=== PATIENT | female | born 1970 | race Caucasian/White ===

== ENCOUNTER → 2023-03-19 11:15 | Outpatient (BNV) | payer BC, SELFPAY | PROVIDERS: Visit Provider Psychiatry & Neurology Psychiatry | DX: F41.1 Generalized anxiety disorder (principal); F51.05 Insomnia due to other mental disorder; F34.1 Dysthymic disorder | CPT/HCPCS: 90792; 99213 ==

== ENCOUNTER 2023-03-23 10:15 | Outpatient (RCR) | payer BC, SELFPAY ==
[2023-03-19 11:18] VITALS: BP 126/81; PULSE 78; TEMP 37
[2023-03-19 11:20] VITALS: BMI 19.3
--- NOTE | 2023-03-19 11:55 | PC.ADMIT ---
Patient is a 52 year old female who was referred to [facility] by her provider d/t severe anxiety and insomnia which is causing depression sxs. Patient reports struggling with insomnia since February 2023. She reports she does not want to be on prescription Benzodiazapines anymore. Reports she has been on them for 20 years. Feels this is contributing to her anxiety/sleep issues. She is prescribed both Clonazepam and Lorazepam. Stated she does not know why her prescriber added Lorazepam. Stated last use of Lorazapam prn was a few weeks ago. Wants to titrate off Clonazepam. Patient reports she has a sleep study scheduled 03/30/23. Patient also stated she slept well last night for the first time getting 8 hours of sleep after taking the full dose of Trazodone last night. Patient is alert and oriented x4. calm and cooperative. Presented with depressed mood and anxious affect. Denied SI. I gave Loretta a copy of her safety plan if needed and I reviewed this with her. Medications reconciled with patient and patient's pharmacy. She reports taking medications as prescribed.
--- NOTE | 2023-03-19 14:54 | HO.PHP ---
The clients case was reviewed and opened in treatment team.
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
--- NOTE | 2023-03-20 22:12 | P.PNPSP_ITS ---
Subjective Subjective Date of Service: 03/20/23 Reason For Visit: depression,anxiety,PTSD Interim History: Patient seen for follow-up today due to ongoing sleep issues. Trazodone was tolerated, had taken an initial 25 mg in the evening (6pm) and 50 mg at bedtime (9pm), plus an additional 50 mg after midnight. She eventually slept a couple of hours but does feel tired this morning. She feels thready today from tiredness. Will plan to take 100 mg trazodone at HS, and then can take an additional 25-50 mg by 11pm if not sufficiently tired. Will continue clonazepam at current dose for the week. She is still interested in coming off of gabapentin, however she may consider continuing on the gabapentin especially if AE start to emerge as we raised the trazodone dose for sleep. Again I approach discussion of considering 1st line treatment for targeting the anxiety, which would likely also translate into improvements in insomnia given chronic pervasive generalized is likely cause or at least one of the primary contributors to her chronic sleep issues. Continue with plan for extended taper off BZD to mitigate potentiating withdrawal sx, by decreasing the dose fractionally (~25% q 2wks). Complaints in keeping with SIMEON, denies any significant depressive symptoms, aside from mild dy sthymia, denies any helplessness, hopelessness or SI. No evidence of psychosis. Medication Compliance: Yes Side effects from medications: No Review of Systems Acute medical concerns: No Mental Status Exam Mental Status Exam Narrative: Alert, oriented, in no acute distress. Patient Appearance: Well Grooomed Patient Behavior: Appropriate and Cooperative Mood Description: Nervous Affect Description: Calm and Anxious Ability to Follow Directions: Excellent Speech Pattern: Clear, Spontaneous Speech and Coherent Memory Description: Intact Hallucinations: None Delusions: Not Present Thought Process: Intact Thought Content: positive for Intact Judgment: Good Diagnostics Vital Signs (24Hr): BMI result Body Mass Index 19.3 Assessment & Plan Assessment & Plan (1) SIMEON (generalized anxiety disorder): Status: Acute Code(s): F41.1 - Generalized anxiety disorder (2) Insomnia disorder, with non-sleep disorder mental comorbidity, persistent: Status: Acute Code(s): F51.05 - Insomnia due to other mental disorder (3) Depressive disorder: Status: Acute Code(s): F32.A - Depression, unspecified Plan Start Buspar 5 mg BID, will increase to 10 mg BID by Thursday per patient request we are tapering her off of benzodiazepine and gabapentin bump up trazodone to 100 mg qhs (may take additional 50 mg PRN insomnia) continue with long BZD taper - clonazepam currently at 3/4 tablet (0.5 mg tab) patient tolerating gabapentin decrease, currently at 1200 mg continue other medicaitons Continue in PHP Patient educated on: diagnosis and medication risk/benefits Informed Consent: understands Reason for contiued partial hosp. stay Substantial Risk for: med/psych decompensation Certification I certify that partial hospital treatment is medically necessary due to the symptoms and problems resulting from the patient's mental illness and the failure to treat the patient at the partial hospital level of care would likely result in the patient requiring inpatient psychiatric care which could not be prevented at a less intensive level of care. Total time managing care of this patient today __30__ minutes. Discharge Plan Discharge Attending provider: Jo Ann Pruitt Medications: No Action gabapentin 600 mg tablet 600 - 900 mg PO BEDTIME trazodone 50 mg tablet 50 - 100 mg PO BEDTIME Patient Comments: Patient took a full tab last night for the first time and slept 8 hours. clonazepam 0.5 mg tablet 0.75 - 1 mg PO BEDTIME PRN (Reason: Anxiety) lorazepam 1 mg tablet 1 - 2 mg PO BEDTIME PRN (Reason: Anxiety)
--- NOTE | 2023-03-23 14:22 | HO.PHPPROGNO ---
Subjective Subjective Date of Service: 03/23/23 Reason For Visit: depression,anxiety,PTSD Interim History: Patient able to sleep 2out of 3 nights with 150 mg trazodone (100 mg around 9pm and additional 50 mg before midnight. Notices some dry mouth which is improving, and perhaps some constipation but will wait and see . Thursday experiences some body aches, was concerned if this was a medication side effects, however this has since resolved. Had more difficulty sleeping last night, started overthinking heading into the evening, fells asleep fine at 9pm but woke at midnight unable to fall back asleep until 4am. Head focused on worries or things she needs to do. Feels tired and more physically anxious/nervous throughout the day (heart racing, exhausted, thready) on days after getting poor sleep. She relayed being more open to considering nonSSRI options for anxiety (such as antihypertensive options prazosin, guanfacine, propranolol, which help with somatic anxiety) however is still quite reluctant to start anything new. She is also expressing some concerns about getting off gabapentin, which she initially advocated for. She has conflicted feelings about medication: preoccupied with potential withdrawal from stopping medication (as well as fears about residential dependence for continued use of medications) which again was discussed in detail for each medication. At this point, it may be more practical to stay on gabapentin - especially given limits of trazodone (with emerging side effects, she's unlikely to tolerate doses beyond 150 mg) as well as her reticence of starting a new medication to help with sleep - and just focus on discontinuation from the benzodiazepine, which she is most eager to stop. Denies any considerable mood issues, says she doesn't feel depressed. Denies any h/h/SI. Medication Compliance: Yes Side effects from medications: Yes (as noted above) Attending Groups: Yes Review of Systems Acute medical concerns: No Mental Status Exam Mental Status Exam Narrative: Alert, oriented, in no acute distress. Patient Appearance: Well Grooomed Patient Behavior: Appropriate and Cooperative Mood Description: Nervous Affect Description: Calm and Anxious Ability to Follow Directions: Excellent Speech Pattern: Clear, Spontaneous Speech and Coherent Memory Description: Intact Hallucinations: None Delusions: Not Present Thought Process: Intact Thought Content: positive for Intact Judgment: Good Diagnostics Vital Signs (24Hr): BMI result Body Mass Index 19.3 Assessment & Plan Assessment & Plan (1) SIMEON (generalized anxiety disorder): Status: Acute Code(s): F41.1 - Generalized anxiety disorder (2) Insomnia disorder, with non-sleep disorder mental comorbidity, persistent: Status: Acute Code(s): F51.05 - Insomnia due to other mental disorder (3) Persistent depressive disorder: Status: Acute Code(s): F34.1 - Dysthymic disorder Plan Continue trazodone 100-150 mg qhs PRN Will continue gabapentin 1200 mg qhs Will reinstate gabapentin 300 mg qd at 5pm to help with anxiety heading into the evening Patient declines starting antidepressant as 1st line treatment for SIMEON, nor any other new medication at this time Continue with long taper off clonazepam Patient educated on: diagnosis and medication risk/benefits Informed Consent: understands Reason for contiued partial hosp. stay Substantial Risk for: med/psych decompensation Certification I certify that partial hospital treatment is medically necessary due to the symptoms and problems resulting from the patient's mental illness and the failure to treat the patient at the partial hospital level of care would likely result in the patient requiring inpatient psychiatric care which could not be prevented at a less intensive level of care. Total time managing care of this patient today __30__ minutes. Discharge Plan Discharge Attending provider: Jo Ann Pruitt Medications: No Action gabapentin 600 mg tablet 600 - 900 mg PO BEDTIME trazodone 50 mg tablet 50 - 100 mg PO BEDTIME Patient Comments: Patient took a full tab last night for the first time and slept 8 hours. clonazepam 0.5 mg tablet 0.75 - 1 mg PO BEDTIME PRN (Reason: Anxiety) lorazepam 1 mg tablet 1 - 2 mg PO BEDTIME PRN (Reason: Anxiety)
--- NOTE | 2023-03-24 10:04 | HO.PHP ---
PHP staff contacted Loretta due to her stating to the admin that she is uncertain to if this program is the right fit for her. PHP staff member explored further what is occurring. Loretta disclosed that she is feeling compassion fatigue and feels as though it is emotionally draining. Loretta voiced that her anxiety has been increasing due to bringing home conversations that were talked about. PHP staff acknowledged her feelings and disclosed she will follow up with the med provider since she is aware that Loretta was working on adjusting medication to see if she is at a stable point with medication changes to discharge. Loretta was receptive and voiced if she could continue with just the med provider, she would but knows that is not a possibility.
== END 2023-03-26 11:04 | disposition home or self-care (01) ==
LOC: HO.PHPA 10:15
PROVIDERS: Visit Provider Psychiatry & Neurology Psychiatry
DX: F41.1 Generalized anxiety disorder (principal); F51.05 Insomnia due to other mental disorder; F34.1 Dysthymic disorder; Z79.899 Other long term (current) drug therapy
CPT/HCPCS: 90791; 90853

== ENCOUNTER 2023-05-26 14:05 | Emergency (ER) | payer BC, SELFPAY ==
[2023-05-26 14:08] VITALS: BP 119/78; PULSE 89; RESP 15; TEMP 36.7; O2SAT 99
--- NOTE | 2023-05-26 14:09 | ED.GENADULT ---
HPI - General Adult General Chief complaint: General Medical Stated complaint: Anxiety Time Seen by Provider: 05/26/23 23:44 Source: patient Mode of arrival: ambulatory Limitations: no limitations History of Present Illness HPI narrative: Emergency room complaining of anxiety, panic attacks. Patient states that she is weaning herself down gradually from Klonopin. Patient states that from the last dose that she weaned herself down, she has had increased lack of sleep, fear, anxiety, palpitations and panic attacks. Patient denies suicidal ideation or homicidal ideation. Patient requesting to be seen by the care team for additional resources. Patient states that she has a therapist and psychiatrist. However, patient feels that she does not have enough support or guidance to wean herself off of Klonopin. Patient states that she does not want to be dependent on benzodiazepines. Related Data Home Medications Medication Instructions Recorded Confirmed clonazepam 0.5 mg tablet 0.75 - 1 mg PO BEDTIME PRN Anxiety 03/19/23 03/19/23 gabapentin 600 mg tablet 600 - 900 mg PO BEDTIME insomnia 03/19/23 03/19/23 lorazepam 1 mg tablet 1 - 2 mg PO BEDTIME PRN Anxiety 03/19/23 03/19/23 trazodone 50 mg tablet 50 - 100 mg PO BEDTIME 03/19/23 03/19/23 Allergies Allergy/AdvReac Type Severity Reaction Status Date / Time gluten AdvReac Gastrointestinal Verified 03/19/23 11:21 Upset Review of Systems Review of Systems: Constitutional : No Weight loss, No Fever, No Chills, No Night Sweats, No Fatigue, No Malaise ENT/Mouth : No Hearing loss, No Ear Pain, No Nasal Congestion, No Sinus Pain, No Hoarseness, No sore throat, No Rhinorrhea, No Swallowing Difficulty Eyes: No Eye Pain, No Swelling, No Redness, No Foreign Body, No Discharge, No Vision Changes Cardiovascular : No Chest Pain, No SOB, No Dyspnea on Exertion, No Orthopnea, No Edema, No Palpitations Respiratory : No Cough, No Sputum, No Wheezing, No Smoke Exposure, No Dyspnea Gastrointestinal : No Nausea, No Vomiting, No Diarrhea, No Constipation, No abdominal Pain, No Hematochezia, No Melena Genitourinary : no irregular bleeding, No Dysuria, No Urinary Frequency, No Hematuria, No Urinary Incontinence, No Urgency, No Flank Pain, No Urinary Flow Changes, No Hesitancy Musculoskeletal : No joint pain, No Myalgias, No Joint Swelling Skin : No Skin Lesions, No rash Neuro : No Weakness, No Numbness, No Paresthesias, No Loss of Consciousness, No Dizziness, No Headache Psych : Complaining of anxiety and panic attacks, No Depression, No SI/HI/AH/VH, No Social Issues, Heme/Lymph: No Bruising, No Bleeding,No Lymphadenopathy Endocrine : No Polyuria, No Polydipsia, No Temperature Intolerance PMFSH Past Medical History Onset Date is defined in the Problem List Problems that require an onset date and time if occurred within 24 hrs of arrival to the ED Aortic Dissection and Rupture; Neurologic impairment; Cardiopulmonary Arrest; Endotracheal Intubation; Insertion or Replacement of Mechanical Circulatory Assist Device Medical History Persistent depressive disorder SIMEON (generalized anxiety disorder) delivery delivered IBS (irritable bowel syndrome) Social History Social History (System 02/19/23 @ 15:27 by Miguelina Fortune) Household Members: Spouse Patient Tobacco Use Status: Never used Tobacco Advance Directives: No Advance Directives Information Provided: Yes Physical Exam ED Vital Signs: Vital Signs - 24 hr 05/26/23 14:08 05/26/23 16:53 05/26/23 23:45 Temperature 98.1 F 98.0 F 98.1 F Pulse Rate 89 88 79 Respiratory Rate 15 16 17 Blood Pressure 119/78 108/66 127/79 Pulse Oximetry 99 98 99 Oxygen Delivery Method Room Air Room Air Room Air BMI result Body Mass Index 20.0 Const Other: Appearance: Alert. Oriented X3. No acute distress. Eyes: Pupils equal, round and reactive to light. ENT: Pharynx normal. Neck: Normal inspection. Neck supple. No lymph nodes noted. No crepitus CVS: Normal heart rate and rhythm. Pulses normal. Normal S1 and S2 Respiratory: No respiratory distress. Breath sounds normal. No Wheezing. No rales Abdomen: Soft and nontender. No rigidity. No distention. Skin: Skin warm and dry. Normal skin color. Normal skin turgor. Extremities: No lower extremity edema. No Lacerations. No Rash Neuro: Oriented X 3. No motor deficit. No sensory deficit. Moving all extremities. No slurred speech. CN 2 through 12 grossly intact Psych: calm, cooperative, normal affect Course Course Course Narrative: This is a rapid medical exam: Additional HPI, ROS, PE not included below will be deferred to primary provider. Patient is a 52-year-old female with history of depressive disorder, SIMEON, insomnia presenting to the emergency department with complaint of increasing anxiety since being weaned off of clonazepam, states she is currently at 0.375mg. Was previously on 0.75mg. States this medication is prescribed by her psychiatrist but that her psychiatrist is not very helpful. Has been having fear, anxiety, is not sleeping, palpitations, fatigue. Has not had a good night's sleep in 5 nights. Denies suicidal or homicidal ideation, auditory or visual hallucinations. Plan: med clearance, CARE team eval Medical Decision Making Medical Decision Making MDM Narrative: My interpretation of labs: Hematology within normal limits, chemistry unremarkable, hCG negative, toxicology negative. -care team consult pending -I was informed by the patient's nurse that the patient eloped Differential Diagnosis Differential Diagnoses: The differential diagnosis associated with the presentation includes (Anxiety, panic attacks) Lab Data 05/26/23 14:25 05/26/23 14:25 Labs: Lab Results 05/26/23 Range/Units 14:25 WBC 8.2 (4.8-10.8) X10*3/uL RBC 4.90 (4.20-5.50) X10*6/uL Hgb 14.6 (12.0-16.0) g/dl Hct 43.4 (37.0-47.0) % MCV 88.6 (80.0-98.0) fL MCH 29.8 (27.0-33.0) pg MCHC 33.6 (31.0-35.0) g/dl RDW 12.4 (11.0-16.0) % Plt Count 326 (160-400) X10*3/uL MPV 9.2 L (9.4-12.3) fL Immature Gran % (Auto) 0.5 H (0.0-0.4) % Neut % (Auto) 62.9 (45-73) % Lymph % (Auto) 26.2 (20-40) % [place] % (Auto) 9.0 (2-11) % Eos % (Auto) 0.9 (0-4) % Baso % (Auto) 0.5 (0-2) % Lymph # (Auto) 2.2 (1.2-4.9) X10*3/uL [place] # (Auto) 0.7 (0.1-1.2) X10*3/uL Eos # (Auto) 0.1 (0.0-0.4) X10*3/uL Baso # (Auto) 0.0 (0.0-0.2) X10*3/uL Abs Immat Gran (auto) 0.04 H (0.00-0.03) X10*3/uL Absolute Neuts (auto) 5.2 (2.0-8.3) x10*3/uL Absolute Nucleated RBC 0.000 (0.0-0.012) X10*3/uL Nucleated RBC % (auto) 0.0 (0.0-0.2) /100WBC Sodium 140 (135-145) mmol/L Potassium 3.7 (3.3-5.1) mmol/L Chloride 100 (96-108) mmol/L Carbon Dioxide 33 H (22-29) mmol/L Anion Gap 11 L (12-20) BUN 14 (9-16) mg/dL Creatinine 0.80 (0.5-1.4) mg/dL Estim Creat Clear Calc 66.3 Estimated GFR > 60 Random Glucose 94 (60-115) mg/dL Calcium 9.3 (8.4-10.2) mg/dL Beta HCG, Quant < 2 mIU/mL Urine Color Yellow Urine Appearance Clear Urine pH 7.5 (5.0-9.0) Ur Specific [place] <= 1.005 (1.005-1.025) Urine Protein Negative (Neg-Trace) mg/dL Urine Glucose (UA) Negative (Negative) mg/dL Urine Ketones Negative (Negative) mg/dL Urine Blood Trace H (Negative) Urine Nitrite Negative (Negative) Ur Leukocyte Esterase Negative (Negative) Urine RBC 0-2 (0-2) /HPF Urine WBC 0-5 (0-5) /HPF Ur Squamous Epith Cells 0-2 (0-2) /HPF Urine Bacteria None Seen (None Seen) Hyaline Casts 0-2 (0-2) /LPF Urine Opiates Screen Not Detected (Not Detect) Urine Fentanyl Screen Not Detected (Not Detect) Ur Barbiturates Screen Not Detected (Not Detect) Ur Phencyclidine Scrn Not Detected (Not Detect) Ur Amphetamines Screen Not Detected (Not Detect) U Benzodiazepines Scrn Not Detected (Not Detect) Urine Cocaine Screen Not Detected (Not Detect) U Marijuana (THC) Screen Not Detected (Not Detect) Ethyl Alcohol < 10 mg/dL COVID-19 (LOIS) Negative (Negative) COVID-19 Clin Com See Note Discharge Plan Discharge Clinical Impression: SIMEON (generalized anxiety disorder) Patient Disposition: Elopement Prescriptions: No Action gabapentin 600 mg tablet 600 - 900 mg PO BEDTIME trazodone 50 mg tablet 50 - 100 mg PO BEDTIME Patient Comments: Patient took a full tab last night for the first time and slept 8 hours. clonazepam 0.5 mg tablet 0.75 - 1 mg PO BEDTIME PRN (Reason: Anxiety) lorazepam 1 mg tablet 1 - 2 mg PO BEDTIME PRN (Reason: Anxiety)
--- NOTE | 2023-05-26 14:13 | ECG_ITS ---
Test Reason : PALPITATIONS Blood Pressure : / mmHG Vent. Rate : 084 BPM Atrial Rate : 084 BPM P-R Int : 130 ms QRS Dur : 076 ms QT Int : 368 ms P-R-T Axes : 048 054 022 degrees QTc Int : 434 ms Normal sinus rhythm Nonspecific ST abnormality Abnormal ECG When compared to the previous EKG of 15 feb 2017, NSTT more prominent Referred By: Melissa Richards Electronically Signed By:INGE NELSON
[2023-05-26 14:31] LABS: MANUAL DIFF FLAG NO
[2023-05-26 14:33] LABS: Appearance Urine Clear; Basophils Percent Auto 0.5 % (0-2); Color Urine Yellow; Eosinophils Absolute Auto 0.1 X10*3/uL (0.0-0.4); Eosinophils Percent Auto 0.9 % (0-4); Glucose Urine UA Negative (Negative); Hematocrit 43.4 % (37.0-47.0); Hemoglobin 14.6 g/dl (12.0-16.0); Imm Gran Abs Auto 0.04 X10*3/uL (0.00-0.03); Imm Gran Pct Auto 0.5 % (0.0-0.4); Leukocyte Esterase Urine Negative (Negative); Lymphocytes Absolute Auto 2.2 X10*3/uL (1.2-4.9); Lymphocytes Percent Auto 26.2 % (20-40); Mean Corpuscular HGB Conc 33.6 g/dl (31.0-35.0); Mean Corpuscular Hemoglobin 29.8 pg (27.0-33.0); Mean Corpuscular Volume 88.6 fL (80.0-98.0); Mean Platelet Volume 9.2 fL (9.4-12.3); Monocytes Absolute Auto 0.7 X10*3/uL (0.1-1.2); Neutrophils Absolute Auto 5.2 x10*3/uL (2.0-8.3); Neutrophils Percent Auto 62.9 % (45-73); Nitrite Urine Negative (Negative); PH 7.5 (5.0-9.0); Platelet Count 326 X10*3/uL (160-400); Red Cell Distribution Width 12.4 % (11.0-16.0); Specific Gravity - Urine <= 1.005 (1.005-1.025); UMIC TRIGGER UACC YES; Urine Blood Trace (Negative); Urine Ketones Negative (Negative); Urine Protein Negative (Neg-Trace); White Blood Count 8.2 X10*3/uL (4.8-10.8)
[2023-05-26 14:40] LABS: Amphetamine Screen Urine Not Detected (Not Detect); Barbiturates, Urine Not Detected (Not Detect); Benzodiazepines Screen Urine Not Detected (Not Detect); Cannabinoid Screen Urine Not Detected (Not Detect); Cocaine Screen Urine Not Detected (Not Detect); Fentanyl, urine Not Detected (Not Detect); Opiate Screen Urine Not Detected (Not Detect); Phencyclidine Screen Urine Not Detected (Not Detect)
[2023-05-26 14:45] LABS: COVID-19 Test Negative (Negative); IDNOW Serial# 08D9AD1C
[2023-05-26 14:55] LABS: Bacteria Urine None Seen (None Seen); Hyaline Casts Urine 0-2 /LPF (0-2); RBC Urine 0-2 /HPF (0-2); Squamous Epithelial Cell Urine 0-2 /HPF (0-2); WBC Urine 0-5 /HPF (0-5)
[2023-05-26 14:56] LABS: Anion Gap 11 (12-20); Blood Urea Nitrogen 14 mg/dL (9-16); Calcium 9.3 mg/dL (8.4-10.2); Carbon Dioxide 33 mmol/L (22-29); Chloride 100 mmol/L (96-108); Creatinine Clr Calc Pharmacy 66.3; Estimated Glomerular Filt Rate > 60; Ethanol < 10 mg/dL; Glucose Random 94 mg/dL (60-115); HCG Quantitative < 2 mIU/mL; Potassium 3.7 mmol/L (3.3-5.1); Sodium 140 mmol/L (135-145)
[2023-05-26 16:53] VITALS: BP 108/66; PULSE 88; RESP 16; TEMP 36.7; O2SAT 98
[2023-05-26 23:45] VITALS: BP 127/79; PULSE 79; RESP 17; TEMP 36.7; O2SAT 99
--- NOTE | 2023-05-27 00:47 | PC.NURSE ---
Took over for MITZI Gates, attempt to assess and discharge pt. pt left with out discharge, Notified Dr. Keyes
== END 2023-05-27 00:48 | disposition left against medical advice (07) ==
PROVIDERS: Registered Nurse Emergency; Emergency Provider Emergency Medicine; PCP Nurse Practitioner Family
DX: F41.1 Generalized anxiety disorder (principal); Z79.899 Other long term (current) drug therapy; Z12.11 Encounter for screening for malignant neoplasm of colon
CPT/HCPCS: 80048; 80307; 81001; 84702; 85025; 87635; 93005; 99283; 99284

== ENCOUNTER → 2023-05-26 14:13 | Outpatient (BNV) | payer BC, SELFPAY | PROVIDERS: Emergency Provider Emergency Medicine; PCP Nurse Practitioner Family; Visit Provider Internal Medicine | DX: R00.2 Palpitations (principal) | CPT/HCPCS: 93010 ==

== ENCOUNTER 2025-02-03 09:15 | Outpatient (AMB) | payer BC, SELFPAY ==
--- OUTSIDE RECORDS SUMMARY | 2023-12-09 08:00 | XMS_ITS ---
Author Organization [address] [id number] Care Team Providers Care Electronics Detail Draftsperson Name Role Phone Naomi Grady Unavailable [phone] REASON FOR VISIT establish Encounters Encounter Location Date Provider Diagnosis [address] [id number] 12/09/2023 Naomi Grady Plan Of Treatment No Information Progress Notes * Loretta BENNETTDOB:[birth year] (54 yo F)Acc No.[id number]:12/09/2023 Progress Notes Patient: Loretta INMAN Provider: Eric Grady ND :1970 A ge:53 Y S ex:Female Date:12/09/2023 Address:[address] [id number] Subjective: * Chief Complaints: * 1 . Establish. * Medical History: Objective: * Vitals: Assessment: Plan: * Treatment: * * Electronic signature of Laisha Grady ND on 02/03/2025 at 10:02 AM EDT Sign off status: Pending * Provider: Eric Grady ND Date: 12/09/2023 Generated for Janice garcia/Nereida/eTrogersmitting on: 02/03/2025 10:02 AM EDT
--- OUTSIDE RECORDS SUMMARY | 2024-04-22 07:00 | XMS_ITS ---
Author Organization [facility] Address [address] [place] [id number] Care Team Providers Care Continuity Clerk Name Role Phone Naomi Grady Unavailable [phone] Sha Lopez Unavailable [phone] REASON FOR VISIT ROF Encounters Encounter Location Date Provider Diagnosis [address] [id number] 04/22/2024 Sha Lopez Plan Of Treatment No Information Progress Notes * Loretta BENNETTDOB:[birth year] (54 yo F)Acc No.[id number]:04/22/2024 Progress Notes Patient: Loretta INMAN Provider: Ericka Lopez ND :1970 A ge:53 Y S ex:Female Date:04/22/2024 Address:[address] [id number] Subjective: * Chief Complaints: * 1 . ROF. * Medical History: Objective: * Vitals: Assessment: Plan: * Treatment: * * Electronic signature of Hesham Lopez ND on 02/03/2025 at 10:01 AM EDT Sign off status: Pending * Provider: Ericka Lopez ND Date: 06/23/2023 Generated for Janice garcia/Nereida/Cateitting on: 02/03/2025 10:01 AM EDT
[2025-02-03 09:22] VITALS: BP 116/64; PULSE 72; O2SAT 99; BMI 19.9
--- NOTE | 2025-02-03 09:22 | MHC.OFFVIS ---
Vital Signs 02/03/25 09:22 Height 5 ft 3 in Weight 112 lb 4 oz BMI 19.9 BP 116/64 Blood Pressure Location Rt brachial Position Sitting Pulse 72 Pulse Source Pulse Oximeter Pulse Oximetry (%) 99 Oxygen Delivery Method Room Air Intake Visit Reasons: ENP-Insomnia Intake Note: Patient presents REAL ESTATE INTERN Insomnia. supervisor cd area awakening pattern at 3-4am with inability to return to sleep. Light snoring. Past few nights hard time falling sleep. Patient states migraines go away on own through out the day. Goes to bed 8pm wake up at 5am. No history of sleep study. Accompanied by: Self / Same As Patient Allergies gluten Adverse Reaction (Verified 02/03/25 09:27) Gastrointestinal Upset HPI Comments Details: 54 year old female presents for an evaluation of sleep difficulties, she is referred to us by her REAL ESTATE INTERN at [facility] in [place]. During the Fall season, as December pt's sleep gets interrupted she goes to bed at 8pm and wakes up 2 hours after taking her medication. She is taking trazadoone 175mg Gabapentin 300mg qam and 900-1200mg qpm with clonazepam 0.5mg po prn for anxiety, and Seroquel 25mg prn for mood irritability. She is also on bioidentical hormones, Progesterone 75mg po and Estrogen cream. She has vasomotor symptoms, sweating, cold intolerance, anxiety, and lack of motivation. She can stay in bed all day due to fatigue. She wears a ice guard tester due to bruxism and has daily headaches in the morning. She takes advil otc and they go away with in 2 hours or less. She is seeing her therapist once a week, uses mindful meditation practices and a light box for seasonal depression. Memory is stable. She has IBS gets constipation and diarrhea, takes magnesium citrate 500mg qam. Her diet is clean. [facility] Medical History Persistent depressive disorder SIMEON (generalized anxiety disorder) delivery delivered IBS (irritable bowel syndrome) Social History Household Members: Spouse Patient Tobacco Use Status: Never used Tobacco Physical Exam Vital Signs: Last Vital Signs Pulse 72 02/03/25 09:22 BP 116/64 02/03/25 09:22 Pulse Ox 99 02/03/25 09:22 Oxygen Delivery Method Room Air 02/03/25 09:22 BMI result Body Mass Index 19.9 Const General: cooperative, comfortable and no acute distress Nutritional Appearance: average body habitus Orientation/consciousness: patient oriented x3 HEENT Face and sinus: Yes face symmetric Teeth and gingiva: other ([place] score 3) Eyes Pupils: Equal, round and reactive pupils present Neck Neck: Yes full ROM Resp Effort & Inspection: normal respiratory effort and able to speak in complete sentences Neuro General: patient oriented x3 and moves all extremities Cranial nerves: Yes Facial sensation intact/muscles of mastication intact, Yes Equal, round and reactive pupils present, Yes Normal accommodation reflex present, Yes Normal facial strength present, Yes Midline tongue present, Yes Ability to bilaterally rotate head present and Yes Ability to bilaterally elevate shoulders present Cognition (Neuro): normal cognition Gait exam (Neuro): Normal gait present Motor exam (neuro): 5/5 motor strength present throughout and Normal motor muscle tone present throughout Psych Appearance: grossly normal Thought process: Normal thought process present Thought content: Normal thought content present Results Reviewed Results Reviewed: Labs reviewed on phone with pt. CBC/ CMP Assessment & Plan Assessment & Plan (1) Excessive daytime sleepiness: Code(s): G47.19 - Other hypersomnia Category: Medical (2) Insomnia disorder, with non-sleep disorder mental comorbidity, persistent: Code(s): F51.05 - Insomnia due to other mental disorder Category: Medical (3) Anemia: Code(s): D64.9 - Anemia, unspecified Category: Medical Qualifiers: Anemia type: iron deficiency Iron deficiency anemia type: other iron deficiency Qualified Code(s): D50.8 - Other iron deficiency anemias (4) Seasonal depression: Code(s): F33.8 - Other recurrent depressive disorders Category: Medical Plan Insomnia and difficulty with sleep HST r/o ana maría Labs to r/o deficiencies. Mood irritable due to seasonal depression, continue seeing therapist and seeking meaning social engagment in [place] of friends. Journaling, finding pleasure and merritt in activities you enjoy. Pt. 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 Recommended CBTi marin and [email or web address] Will f/u in 3 months Orders: Orders Vitamin D 25-OH Total Today D64.9 - Anemia, unspecified Vitamin B6 Today D64.9 - Anemia, unspecified Vitamin B1 Today D64.9 - Anemia, unspecified RT home sleep study Today G47.19 - Other hypersomnia Ferritin Today D64.9 - Anemia, unspecified Homocysteine Today D64.9 - Anemia, unspecified, G47.9 - Sleep disorder, unspecified, R53.83 - Other fatigue Methylmalonic Acid Today D64.9 - Anemia, unspecified, G47.9 - Sleep disorder, unspecified, R53.83 - Other fatigue Vitamin B12 and Folate Today D64.9 - Anemia, unspecified TSH reflex Free T4 Today D64.9 - Anemia, unspecified Patient Instructions: Sleep Hygiene provided: set a scheduled bedtime and wake time to help regulate the circadian rhythm and balance the release of pituitary hormones. Sleep in a dark room, temperatures below 68 degrees, and no devices n bed. Limit caffeinated products 6 hours prior to bed, and limit fluids 2-4 hours prior to bed. Gentle night yoga, diffusing essential oils, and playing soft music can be relaxing. Coding Level of Care Code New Pt Level 4 (04143) Diagnoses Excessive daytime sleepiness G47.19 Insomnia disorder, with non-sleep disorder mental comorbidity, persistent F51.05 Other iron deficiency anemia D50.8 Anemia type: iron deficiency Iron deficiency anemia type: other iron deficiency Seasonal depression F33.8 Sleep Questionnaire Difficulty falling asleep: Yes Difficulty staying asleep?: Yes Number of arousals: 6-7 Snoring: No Witnessed apneas: No Gasping arousals: No Nocturia: Yes (3x) GERD: No Vivid dreams: No Acting out dreams: No Abnormal behavior in sleep: No Abnormal movements in sleep: No Morning headaches: Yes Excessive daytime sleepiness: Yes Daytime naps: Yes (lays down but can't fall asleep, for all day.) Restless legs: No Hallucinations: No Sleep paralysis: No Drop attacks: No Sleep Study: No CPAP: No
--- OUTSIDE RECORDS SUMMARY | 2025-02-03 10:01 | XMS_ITS | Encounter Summary ---
Author Organization [facility] Address [address] [place] [address] [place], [place] [id number] Phone Care Team Providers Care Euclid Operator Name Role Phone Kayley Hawkins QUICK SERVICE TECHNICIAN Unavailable [phone] Dhara Greenwood CNM Unavailable [phone] Baldo Sloan MD Unavailable Nelida Rogers QUICK SERVICE TECHNICIAN Unavailable [phone] Augusta Odom QUICK SERVICE TECHNICIAN Unavailable [phone] Primo Nieves MD, MPH Primary Care Provider + Augusta Odom QUICK SERVICE TECHNICIAN Primary Care Provider [phone] Encounter Details Date Type Department Care Team (Latest Contact Info) Description 04/19/2021 Transcribe Orders Virtual Department [address] [place], [place] [phone] Peggy Gomez, DO [address] [place] [address] [email or web address] Unspecified lump in the right breast, unspecified quadrant (Primary Dx) Social History Tobacco Use Types Packs/Day Years Used Date Smoking Tobacco: Never Assessed Comments No Sex and Gender Information Value Date Recorded Sex Assigned at Female 05/25/2020 11:15 AM EST Legal Sex Female 9:34 PM EDT Gender Identity Female 05/25/2020 11:15 AM EST Sexual Orientation Straight 09/25/2021 9: 06 PM EDT documented as of this encounter Plan of Treatment Not on file documented as of this encounter Visit Diagnoses Diagnosis Unspecified lump in the right breast, unspecified quadrant- Primary documented in this encounter Care Teams Euclid Operator Relationship Specialty Start Date End Date Primo Nieves MD, MPH [address] [place] [address] PCP - General Family Medicine 04/19/21 09/12/23 Augusta Odom QUICK SERVICE TECHNICIAN [address] [place] [phone] PCP - General Nurse Practitioner 09/13/23 Kayley Hawkins NP [address] [place] [phone] Historical LMR Provider 02/28/17 Dhara Greenwood CNM [address] [place] [phone] Historical LMR Provider 02/28/17 2 Baldo Sloan MD [address] [place] [id number] [email or web address] Historical LMR Provider 02/28/17 05/18/21 Nelida Rogers NP [address] [place] [phone] [email or web address] Historical LMR Provider 02/28/17 05/18/21 Augusta Odom NP [address] [place] [phone] Historical LMR Provider 02/28/17 documented as of this encounter Additional Source Comments The information contained in this document represents components of the legal health record. It is not the complete legal health record.[facility]
--- OUTSIDE RECORDS SUMMARY | 2025-02-03 10:01 | XMS_ITS | Encounter Summary ---
Author Organization [facility] Address [address] [facility] [address] [place] [phone] Phone Care Team Providers Care Respiratory Care Technician Name Role Phone Kayley Hawkins CURTAIN FRAMER Unavailable [phone] Augusta Odom CURTAIN FRAMER Primary Care Provider [phone] Encounter Details Date Type Department Care Team (Late st Contact Info) Description 06/23/2024 Procedure Pass [facility] - [address] [place] [address] Social History Tobacco Use Types Packs/Day Years Used Date Smoking Tobacco: Never Smokeless Tobacco: Never Alcohol Use Standard Drinks/Week Comments Not Currently 0 (1 standard drink = 0.6 oz pur e alcohol) Education Answer Date Recorded Are you interested in more education? Not on mingo e 09/05/2022 Are you concerned about learning? Not on file 09/05/2022 No 09/05/2022 No 09/05/2022 Digital Access Answer Date Recorded No 09/30/2022 No 09/30/2022 Reliable internet access at home? Not on file 09/30/2022 Device with a working camera? Not on file Intimate Partner Violence Answer Date R ecorded Are you denied basic needs s uch as food, clothing, or medical care? No 09/13/2023 In the past 12 months have y ou been in a relationship with a person who hurts, threatens, or tries to control you? No 09/13/2023 Are you denied basic needs s uch as food, clothing, or medical care? No 09/13/2023 In the past 12 months have y ou been in a relationship with a person who hurts, threatens, or tries to control you? No 09/13/2023 Comments No Sex and Gender Information Value Date Recorded Sex Assigned at Female 05/25/2020 11:15 AM EST Legal Sex Female 9:34 PM EDT Gender Identity Female 05/25/2020 11:15 AM EST Sexual Orientation Straight 09/25/2021 9: 06 PM EDT documented as of this encounter Plan of Treatment Not on file documented as of this encounter Visit Diagnoses Not on filedocumented in this encounter Care Teams Respiratory Care Technician Relationship Specialty Start Date End Date Augusta Odom NP [address] [place] [address] PCP - General Nurse Practitioner 09/13/23 Kayley Hawkins NP [address] [place] [phone] Historical LMR Provider 02/28/17 documented as of this encounter Additional Source Comments The information contained in this document represents components of the legal health record. It is not the complete legal health record.[facility]
--- OUTSIDE RECORDS SUMMARY | 2025-02-03 10:01 | XMS_ITS | Clinical Summary ---
Author Organization [facility] Address [address] [address] Phone Care Team Providers Care Slusher Operator Name Role Phone Kayley Hawkins WILDLIFE REHABILITATOR Unavailable [phone] Augusta Odom WILDLIFE REHABILITATOR Primary Care Provider [phone] Allergies No known active allergies Medications CLONAZEPAM (KLONOPIN ORAL) 1 tablet Orally prn Active gabapentin (NEURONTIN) 300 MG capsule Take 800 mg by mouth. 2 Active cyanocobalamin , vitamin B-12, (VITAMIN B-12 ORAL) Take by mouth. Acti ve cholecalcifero l, vitamin D3, (VITAMIN D3 ORAL) Take by mouth. Activ e ferrous gluconate 324 mg (38 mg elemental) tablet Take 1 tablet by mouth 2 (two) times a day. 3 Active traZODone (DESYREL) 50 MG tablet TAKE 3 TABLETS (50 MG) BY MOUTH EVERY DAY AT BEDTIME NEEDED 4 Active PROGESTERONE, BULK, MISC 75 mg by Miscellaneous route daily. Bioidentical progesterone 4 Active TIFFANY 0.025 mg/24 hr 1 PATCH(ES) 2 TIMES A WEEK, TRANSDERMAL ROUTE 4 Active senna (SENOKOT) 8.6 mg tablet Take 1 tablet by mouth 2 (two) times a day. Please take twice a day until you have a successful bowel movement and then once daily as maintenance 30 tablet 5 Active Active Problems Problem Noted Date Diagnosed Date Vasomotor symptoms due to menopause 07/18/2022 Assessment & Plan (09/17/2023 3:00 PM EDT): Again discussed management options for hot flashes including E+P HRT, SSRI, or Veozah. Discussed different forms of HRT (estrogen: oral, patch, vaginal ring; progesterone: oral, patch, IUD) and pros/cons to each approach. Reviewed WHI findings including increased risk of TN/heart disease, breast cancer and VTE/stroke on HRT with overall decrease in hot flashes, colorectal cancer, and fractures. Advised that current compounded progesterone is not appropriate as estradiol opposition and should be discontinued. Reviewed dosing instructions and side effects including vaginal bleeding and breast tenderness. Loretta is most interested in trying combination patch given side effects with PO Prometrium previously. Rx sent to pharmacy. Resolved Problems Problem Noted Date Diagnosed Date Resolved Date Hormone replacement therapy 01/06/2019 10/18/2021 Assessment & Plan (03/19/2020 10:42 AM EST): Prescribed by Augusta Odom - discussed alternatives to current progesterone dosing including Climara-Pro patch or cyclic micronized progesterone. Again discussed risks/benefits of HRT. Loretta will consider. Assessment & Plan (01/06/2019 9:03 PM EDT): We discussed general principles of HRT including indications (perimenopausal vasomotor symptoms) with the goal of therapy to include the lowest dose/shortest course possible. We discussed different delivery mechanisms of HRT (estrogen: oral, patch; progesterone: oral, patch, IUD) and pros/cons to each approach. Reviewed WHI findings including increased risk of TN/heart disease, breast cancer and VTE/stroke on HRT with overall decrease in hot flashes, colorectal cancer, and fractures. I recommended that Loretta stop the HRT as she was not having vasomotor symptoms and seems to be having medication side effects that are disruptive. I understand that she notes improved sleep but do not think the added side effects warrant continued therapy. She will discuss this further with the prescribing provider. Encounters Date Type Department Care Team Description 01/19/2025 12:13 PM EDT - 01/19/2025 4:33 PM EDT Emergency [facility] [address] [place] [address] Discharge Disposition: Home or Self Care 12/01/2024 4:10 PM EDT Office Visit [facility] [address] [place] [address] Carlos Gomez MD Encounter for gynecological examination without abnormal finding (Primary Dx) 11/23/2024 8:29 PM EDT - 11/24/2024 12:57 AM EDT Emergency [facility] [address] [place] [address] Akiko Begum MD Discharge Disposition: Home or Self Care 11/23/2024 Procedure Pass [facility], Ct Scan - [facility] [address] [place] [address] from Last 3 Months Immunizations Immunization Administration Dates Next Due Influenza, Unspecified Formulation 05/06/2006,,03/31/2003 Td (adult), not adsorbed 07/23/2018 Tdap 09/04/2008 Family History Medical History Relation Comments Endometrial cancer Sister Multiple sclerosis Sister Relation Status Comments Father Alive Mother Alive Sister Social History Tobacco Use Types Packs/Day Years Used Date Smoking Tobacco: Never Smokeless Tobacco: Never Tobacco Cessation:Counseling Given: Not Answered Alcohol Use Standard Drinks/Week Comments Not Currently 0 (1 standard drink = 0.6 oz pur e alcohol) Education Answer Date Recorded Are you interested in more education? Not on mingo e 09/05/2022 Are you concerned about learning? Not on file 09/05/2022 No 09/05/2022 No 09/05/2022 Food Answer Date Recorded Within the past 6 months we worried whether our food would run out before we got money to buy more. Never True 01/19/2025 Within the past 6 months the food we bought just didn't last and we didn't have enough money to get more. Never True Residential Stability Answer Date Recor ded What is your housing situation today? I have pramod sing 01/19/2025 How many times have you move d in the past 12 months? Zero (I did not move) 01/19/2025 Paying for Meds Answer Date Recorded Do you have trouble paying for medicines? No 01/19/2025 Paying Utility Bills Answer Date Record ed Do you have trouble paying your heating or elect ricity bill? No 01/19/2025 Transportation Answer Date Recorded Has the lack of transportati on kept you from medical appointments or from getting medications? No 01/19/2025 Digital Access Answer Date Recorded No 01/19/2025 Yes 01/19/2025 Do you have reliable internet access at home? Ye s 01/19/2025 Do you have a device (e.g., phone, tablet, computer) with a working camera? Yes 01/19/2025 Intimate Partner Violence Answer Date R ecorded Are you denied basic needs s uch as food, clothing, or medical care? No 01/19/2025 In the past 12 months have y ou been in a relationship with a person who hurts, threatens, or tries to control you? No 01/19/2025 Are you denied basic needs s uch as food, clothing, or medical care? No 01/19/2025 In the past 12 months have y ou been in a relationship with a person who hurts, threatens, or tries to control you? No 01/19/2025 Comments No Sex and Gender Information Value Date Recorded Sex Assigned at Female 05/25/2020 11:15 AM EST Legal Sex Female 9:34 PM EDT Gender Identity Female 05/25/2020 11:15 AM EST Sexual Orientation Straight 09/25/2021 9: 06 PM EDT Last Filed Vital Signs Vital Sign Reading Time Taken Comments Blood Pressure 122/70 01/19/2025 4:22 PM EDT Pulse 72 01/19/2025 4:22 PM EDT Temperature 36.1 C (97 F) 01/19/2025 4:22 PM EDT Respiratory Rate 18 01/19/2025 4:22 PM EDT Oxygen Saturation 98% 01/19/2025 4:22 PM EDT Inhaled Oxygen Concentration - - Weight 50.8 kg (112 lb) 01/19/2025 11:21 AM EDT Height 157.5 cm (5' 2 ) 01/19/2025 11:21 AM EDT Body Mass Index 20.49 01/19/2025 11:21 AM EDT Plan of Treatment Health Maintenance Due Date Last Done Comments LIPID PANEL 1970 DEPRESSION SCREENING 1982 HEPATITIS C SCREENING 1988 HIV ONE-TIME SCREENING (18-65 YEARS) 1988 COLOGUARD 2015 COLONOSCOPY 2015 COLORECTAL CANCER SCREENING 2015 FIT TEST 2015 FOBT 2015 SIGMOIDOSCOPY 2015 VIRTUAL COLONOSCOPY 2015 PNEUMOCOCCAL VACCINES (50+ years) (1 of 1 - PCV) 2020 ZOSTER VACCINES (1 of 2) 2020 INFLUENZA VACCINE (#1) 2024 6, 04/01/2005, 03/31/2003 COVID-19 VACCINE (3 - season) 2025 01/09/2021, 12/18/2020 MAMMOGRAM 07/20/2026 07/20/2024, 06/12, 07/07/2024, Additional history exists Adult Td,Tdap Booster 07/23/2028 07/23/2018, 009 PAP SMEAR 10/26/2028 10/27/2023, 11/0 01/2020, 03/19/2020, Additional history exists SMOKING STATUS SCREENING (Once After 26 Yrs) Completed 12/01/2024 HEPATITIS A VACCINES Aged Out No long er eligible based on patient's age to complete this topic HIB VACCINES Aged Out No longer eligi ble based on patient's age to complete this topic MENINGOCOCCAL VACCINES (ACWY) Aged Out No longer eligible based on patient's age to complete this topic MENINGOCOCCAL VACCINES (B) Aged Out N o longer eligible based on patient's age to complete this topic Medical Devices Not on file Procedures Procedure Name Priority Date/Time Associated Diagnosis Comments LIPASE STAT 01/19/2025 11:49 AM EDT LFTS (HEPATIC PANEL) STAT 01/19/2025 11:49 AM EDT HCG, SERUM QUALITATIVE STAT 01/19/2025 11:49 AM EDT BASIC METABOLIC PANEL STAT 01/19/2025 11:49 AM EDT CBC AND DIFFERENTIAL STAT 01/19/2025 11:49 AM EDT URINALYSIS W/REFLEX URINE CULTURE STAT 01/19/2025 11:[address] ABDOMEN/PELVIS WITH CONTRAST Routine 11/23/2024 10:25 PM EDT LIPASE STAT 11/23/2024 3:46 PM EDT LFTS (HEPATIC PANEL) STAT 11/23/2024 3:46 PM EDT HCG, SERUM QUALITATIVE STAT 11/23/2024 3:46 PM EDT BASIC METABOLIC PANEL STAT 11/23/2024 3:46 PM EDT CBC AND DIFFERENTIAL STAT 11/23/2024 3:46 PM EDT URINALYSIS W/REFLEX URINE CULTURE STAT 11/23/2024 3:39 PM EDT BI MAMMOGRAM OUTSIDE (NO INTERPRETATION) Routine 07/20/2024 12:00 AM EDT PAP TEST Routine 10/27/2023 12:00 AM EDT from Last 3 Months or Most Recently Relevant to Health Maintenance Results * HCG, serum qualitative (01/19/2025 11:49 AM EDT) Only the most recent of2 resultswithin the time period is included. HCG, QUALITATIVE Negative Negative IU/L [facility] Blood 01/19/2025 11:4 9 AM EDT 01/19/2025 12:13 PM EDT us Kamaljit Terrell MD LAB BLOOD ORDERABLES Final Resu lt [facility] [address] [place] [address] * LFTs (hepatic panel) (01/19/2025 11:49 AM EDT) Only the most recent of2 resultswithin the time period is included. ALKALINE PHOSPHATASE 67 39 - 117 U/L [facility] TOTAL BILIRUBIN 0.8 0.0 - 1.2 mg/dL [facility] DIRECT BILIRUBIN 0.2 0.0 - 0.2 mg/dL [facility] Bilirubin (Indirect) 0.6 0 - 1.5 mg/dL [facility] AST 26 0 - 37 U/L [facility] ALT 30 0 - 40 U/L [facility] TOTAL PROTEIN 7.7 6.5 - 8.0 g/dL [facility] ALBUMIN 4.7 3.9 - 4.8 g/dL [facility] GLOBULIN 3.0 1 - 4.8 g/dL [facility] A/G Ratio 1.57 1.00 - 4.80 RATIO [facility] Blood 01/19/2025 11:4 9 AM EDT 01/19/2025 12:13 PM EDT us Kamaljit Terrell MD LAB BLOOD ORDERABLES Final Resu lt [facility] [address] [place], [place] [id number] * (ABNORMAL) CBC and differential (01/19/2025 11:49 AM EDT) Only the most recent of2 resultswithin the time period is included. WBC 4.40 4.00 - 11.00 K/uL [facility] RBC 4.94 4.00 - 5.20 M/uL [facility] HGB 14.8 12.0 - 16.0 g/dL [facility] HCT 44.0 36.0 - 46.0 % [facility] PLT 236 150 - 450 K/uL [facility] MCV 89.1 80.0 - 100.0 fL [facility] MCH 30.0 27.0 - 31.0 pg [facility] MCHC 33.6 32.0 - 36.0 g/dL [facility] RDW 11.9 11.5 - 14.5 % [facility] MPV 10.1 8.4 - 12.0 [facility] NRBC 0.00 0.00 /100 WBCs [facility] ABSOLUTE NRBC 0.00 0.00 K/uL [facility] DIFF METHOD Auto [facility] NEUTS 44.1(L) 48.0 - 76.0 % [facility] LYMPHS 43.2(H) 18.0 - 41.0 % [facility] MONOS 9.1 4.0 - 11.0 % [facility] EOS 2.3 0.0 - 5.0 % [facility] BASOS 1.1 0.0 - 1.5 % [facility] Granulocytes, immature (%) 0.2 0.0 - 0.9 % [facility] ABSOLUTE NEUTS 1.94 1.92 - 7.60 K/uL [facility] ABSOLUTE LYMPHS 1.90 0.72 - 4.10 K/uL [facility] ABSOLUTE MONOS 0.40 0.16 - 1.10 K/uL [facility] ABSOLUTE EOS 0.10 0.00 - 0.50 K/uL [facility] ABSOLUTE BASOS 0.05 0.00 - 0.15 K/uL [facility] Granulocytes, immature 0.01 0.00 - 0.09 K/uL [facility] Blood 01/19/2025 11:4 9 AM EDT 01/19/2025 12:13 PM EDT us Kamaljit Terrell MD LAB BLOOD ORDERABLES Final Resu lt [address] [address] * (ABNORMAL) Lipase (01/19/2025 11:49 AM EDT) Only the most recent of2 resultswithin the time period is included. LIPASE 69(H) 16 - 63 U/L [facility] Blood 01/19/2025 11:4 9 AM EDT 01/19/2025 12:13 PM EDT Kamaljit Terrell MD LAB BLOOD ORDERABLES Final Resu lt [address] [address] * Basic metabolic panel (01/19/2025 11:49 AM EDT) Only the most recent of2 resultswithin the time period is included. SODIUM 141 133 - 146 mmol/L [facility] CHLORIDE 102 96 - 108 mmol/L [facility] POTASSIUM 3.9 3.3 - 5.1 mmol/L [facility] CO2 27 21 - 35 mmol/L [facility] BUN 15 6 - 19 mg/dL [facility] CREATININE 0.80 0.5 - 1.5 mg/dL [facility] GLUCOSE 93 70 - 99 mg/dL [facility] CALCIUM 9.5 8.4 - 10.3 mg/dL [facility] EGFR 88 >59 mL/min/1.7 3m2 [facility] Comment:Estimated glomerular filtration rate calculated using the CKD-EPI refit equation. ANION GAP 16 10 - 20 mmol/L [facility] Blood 01/19/2025 11:4 9 AM EDT 01/19/2025 12:13 PM EDT us Kamaljit Terrell MD LAB BLOOD ORDERABLES Final Resu lt [address] [address] * (ABNORMAL) Urinalysis w/reflex Urine Culture (01/19/2025 11:24 AM EDT) Only the most recent of2 resultswithin the time period is included. COLOR Yellow Yellow [facility] CLARITY Clear [facility] GLUCOSE Negative Negative [facility] BILI Negative Negative [facility] KETONES Negative Negative [facility] SPECIFIC GRAVITY <1.005 1.005 - 1.030 [facility] BLOOD Trace(A) Negative [facility] PH 6.0 5.0 - 8.0 [facility] Protein-UA Negative Negative [facility] NITRITE Negative Negative [facility] Leukocyte esterase, ur Negative Negative [facility] Urine (Urine) 01/19/2025 11: 24 AM EDT 01/19/2025 11:38 AM EDT us Kamaljit Terrell MD URINE ORDERABLES Final Result [facility] [address] [place] [address] * CT ABDOMEN/PELVIS WITH CONTRAST (11/23/2024 10:25 PM EDT) Anatomical Region Laterality Modality Abdomen, Pelvis Computed Tomogra phy 11/24/2024 12:1 5 AM EDT Impressions 11/24/2024 12:23 AM EDT There is mild fluid-filled colon with air-fluid levels, may be due to mild colitis. Marked fecal loading of the colon, constipation. Uterine fibroids. No other acute abdominal or pelvic abnormality. Narrative 11/24/2024 12:[address] ABDOMEN/PELVIS WITH CONTRAST Referring clinician's provided indication for this examination in Epic: * Abdominal abscess/infection suspected; * RLQ abdominal pain, appendicitis suspected (Age >= 14y) TECHNIQUE: Multidetector-row CT of the abdomen and pelvis was performed after administration of intravenous contrast using tailored dose modulation techniques. Images were reconstructed in the axial, coronal, and sagittal planes. COMPARISON: None FINDINGS: Lower Chest: Mild dependent atelectasis at the lung bases. No pleural effusion. Liver: Small left hepatic lobe cysts. No enhancing lesion. No biliary dilation. Biliary: Gallbladder and common bile duct is unremarkable. No surrounding inflammation or biliary dilation Spleen: No splenomegaly or focal lesions. Pancreas: Normal. No masses or ductal dilatation. Adrenal Glands: Normal. No nodules. Kidneys/Ureters: The kidneys enhance symmetrically. No hydronephrosis or obstructing calculus. No renal, ureteral or bladder calculus. Bowel: The bowel is nonobstructed. Moderate fecal loading of the colon, no pneumatosis or pneumoperitoneum. Mild fluid filled large intestine with air- fluid levels may be due to mild underlying colitis. The appendix is unremarkable Peritoneum/Retroperitoneum: No free fluid or free air. Lymph Nodes: No significant adenopathy. Pelvic Organs/Bladder: Bladder is normal in appearance. Fundal uterine fibroids are present. No adnexal lesion. Vessels: Aorta and IVC are normal in size. Bones/Soft Tissues: Degenerative changes of the spine are present. Sacral bone island. No acute osseous abnormality. Procedure Note Palma Pardo MD, PhD - 11/24/2024 CT ABDOMEN/PELVIS WITH CONTRAST Referring clinician's provided indication for this examination in Epic: *Abdominal abscess/infection suspected; * RLQ abdominal pain, appendicitissuspected (Age >= 14y) TECHNIQUE: Multidetector-row CT of the abdomen and pelvis was performedafter administration of intravenous contrast using tailored dosemodulation techniques. Images were reconstructed in the axial, coronal,and sagittal planes. COMPARISON: None FINDINGS: Lower Chest: Mild dependent atelectasis at the lung bases. No pleuraleffusion. Liver: Small left hepatic lobe cysts. No enhancing lesion. No biliarydilation. Biliary: Gallbladder and common bile duct is unremarkable. No surroundinginflammation or biliary dilation Spleen: No splenomegaly or focal lesions. Pancreas: Normal. No masses or ductal dilatation. Adrenal Glands: Normal. No nodules. Kidneys/Ureters: The kidneys enhance symmetrically. No hydronephrosis orobstructing calculus. No renal, ureteral or bladder calculus. Bowel: The bowel is nonobstructed. Moderate fecal loading of the colon, nopneumatosis or pneumoperitoneum. Mild fluid filled large intestine withair-fluid levels may be due to mild underlying colitis. The appendix isunremarkable Peritoneum/Retroperitoneum: No free fluid or free air. Lymph Nodes: No significant adenopathy. Pelvic Organs/Bladder: Bladder is normal in appearance. Fundal uterinefibroids are present. No adnexal lesion. Vessels: Aorta and IVC are normal in size. Bones/Soft Tissues: Degenerative changes of the spine are present. Sacralbone island. No acute osseous abnormality. IMPRESSION: There is mild fluid-filled colon with air-fluid levels, may be due to mildcolitis. Marked fecal loading of the colon, constipation. Uterine fibroids. No other acute abdominal or pelvic abnormality. us Akiko Begum MD IMG CT ABD/PELVIS Final Resu lt * Mammogram Outside (No Interpretation) (07/20/2024 12:00 AM EDT) Narrative SYSTEMGENERATED, DOCUMENTATION - 07/22/2024 12:38 PM EDT This study is for PACS storage only and not for interpretation. us Unknown Unknown MD SALDAÑA OUTSIDE IMAGING W/OUT INT ERPRETATION Final Result * Pap Test (10/27/2023 12:00 AM EDT) 10/27/2023 10/28/2023 8:4 5 AM EDT Narrative SEE NARRATIVE - 11/09/2023 5:24 PM EDT [address] [address] Surgical Coordinator: Fawn Hinds MD FORMULA BOTTLER Cytology Report FINAL DIAGNOSIS A. PAP SMEAR (THIN PREP) CE: SPECIMEN ADEQUACY: Satisfactory for evaluation; transformation zone absent/insufficient. Evaluation limited by scant cellularity. INTERPRETATION: NEGATIVE FOR INTRAEPITHELIAL LESION OR MALIGNANCY. Electronically Signed Out By: MD Toshia Ba CT(ASCP) By his/her signature above, the pathologist listed as making the Final Diagnosis certifies that he/she has personally reviewed this case and confirmed or corrected the diagnosis. The Pap test is a screening test primarily for squamous cancers and precursors and has associated false-negative and false-positive results. New technologies such as liquid-based preparations may decrease but will not eliminate all false-negative results. Regular sampling and follow-up of unexplained clinical signs and symptoms are recommended to minimize false negative results. PROCEDURES/ADDENDA HPV Testing (Requested) Ordered Date: 10/28/2023 A. PAP SMEAR (THIN PREP) CE: Human Papilloma Virus Test NEGATIVE for high-risk Human Papilloma Virus types 16, 18, 45 and the Other high risk probe set (Includes 31, 33, 35, 39, 51, 52, 56, 58, 59, 66, 68) Note: Testing performed by [employer] HR-HPV analysis. Clinical correlation is advised. This HPV test was performed at [facility], [address] [place] [address]. This test has been FDA approved for both SurePath and ThinPrep cervical cytology specimens. The accuracy and precision of this test for all other specimen sources has been verified in the Cytopathology Laboratory of the [facility] and has not been cleared or approved by the U.S. Food and Drug Administration. Clinical correlation is advised. CLINICAL HISTORY Date of Last Menstrual Period: Not Provided Menstrual History: Unknown Other Clinical Conditions: Screening Pap SPECIMEN SOURCE A: PAP SMEAR (THIN PREP) CE Patient Name: LORETTA AUGUSTIN : 1970 (Age: 53) Sex: F Institution: [facility] Location: [facility] Date of Collection: 10/27/2023 Date of Reported: 11/09/2023 17:24 Results to: Augusta Odom NP us Augusta Odom NP CYTOLOGY ORDERABLES Final Resul t SEE NARRATIVE from Last 3 Months or Most Recently Relevant to Health Maintenance Insurance O [place] E[place] P[place] [address] [place] [address] [place] [address] [place] [address] [place] [address] [place] [address] PPO EPO PPO EPO PPO EPO Care Teams Slusher Operator Relationship Specialty Start Date End Date Augusta Odom NP [address] [place] [address] PCP - General Nurse Practitioner 09/13/23 Kayley Hawkins NP [address] [address] Historical LMR Provider 02/28/17 Additional Source Comments The information contained in this document represents components of the legal health record. It is not the complete legal health record.[facility]
--- OUTSIDE RECORDS SUMMARY | 2025-02-03 10:01 | XMS_ITS | Encounter Summary ---
Author Organization [facility] Address [address] [employer] [facility] [address] [place] [address] Phone Care Team Providers Care Automotive Customer Experience Advisor Name Role Phone Kayley Hawkins CONSTRUCTION PLUMBER Unavailable [phone] Augusta Odom CONSTRUCTION PLUMBER Primary Care Provider [phone] Encounter Details Date Type Department Care Team (Late st Contact Info) Description 06/23/2024 Procedure Pass [facility] - [address] [place] [address] Social History Tobacco Use Types Packs/Day Years [...] on filedocumented in this encounter Care Teams Automotive Customer Experience Advisor Relationship Specialty Start Date End Date Augusta Odom NP [address] [place] [address] PCP - General Nurse Practitioner 09/13/23 Kayley Hawkins NP [address] [place] [address] Historical LMR Provider 02/28/17 documented as of this encounter Additional Source Comments The information contained in this document represents components of the legal health record. It is not the complete legal health record.[facility]
--- OUTSIDE RECORDS SUMMARY | 2025-02-03 10:01 | XMS_ITS | Encounter Summary ---
Author Organization [facility] Address [address] [facility] [address] [place] [address] Phone Care Team Providers Care Director Of Revenue Name Role Phone Kayley Hawkins PREPRESS PROOFER Unavailable [phone] Dhara Greenwood CNM Unavailable Baldo Sloan MD Unavailable Nelida Rogers PREPRESS PROOFER Unavailable [phone] Augusta Odom PREPRESS PROOFER Unavailable [phone] Primo Nieves MD, MPH Primary Care Provider + Primo Nieves MD, MPH Primary Care Provider + Augusta Odom PREPRESS PROOFER Primary Care Provider Encounter Details Date Type Department Care Team (Latest Contact Info) Description 10/26/2017 Transcribe Orders [facility] [address] [place] [address] Elsa Burgos MD [address] [facility], [address] [place] [address] [email or web address] Bilateral breast lump (Primary Dx) Social History Tobacco Use Types Packs/Day Years Used Date Smoking Tobacco: Never Smokeless Tobacco: Never Alcohol Use Standard Drinks/Week Comments No 0 (1 standard drink = 0.6 oz pur e alcohol) Comments No Sex and Gender Information Value Date Recorded Sex Assigned at Female 05/25/2020 11:15 AM EST Legal Sex Female 9:34 PM EDT Gender Identity Female 05/25/2020 11:15 AM EST Sexual Orientation Straight 09/25/2021 9: 06 PM EDT documented as of this encounter Plan of Treatment Not on file documented as of this encounter Results * BI US BREAST LIMITED (BILATERAL) (10/26/2017 12:27 PM EDT) Anatomical Region Laterality Modality Breast Left, Breast Right, Breast Bilateral Bila teral Ultrasound 10/26/2017 10:1 7 AM EDT Impressions 10/26/2017 2:56 PM EDT RIGHT BREAST: Simple cyst correlates with the palpable concern. Benign findings, no evidence of malignancy. Patient may return to routine screening mammogram. LEFT BREAST: Simple and complicated cysts correlate with the palpable concerns. Benign findings, no evidence of malignancy. Patient may return to routine screening mammogram. BI-RADS CATEGORY: 2 - Benign finding. DENSITY: The breast tissue is heterogeneously dense, an appearance which lowers the sensitivity of mammography. POS - CDHMAM2 Narrative 10/26/2017 2:56 PM EDT History: Bilateral lumps. STUDIES: 1. Bilateral diagnostic mammography with tomosynthesis and CAD 2. Targeted ultrasound of the right breast 3. Targeted ultrasound of the left breast TECHNIQUE: Bilateral full-field digital diagnostic mammography is obtained and read in conjunction with computer-aided detection. Tomosynthesis as well as 2-D C view imaging were obtained. COMPARISON: Previous right breast ultrasound in October 2013 describes a 1.8 cm simple cyst at 3 o'clock position Previous left breast ultrasound in October 2016 describes left breast cyst with thin septation at 3 o'clock position. BREAST COMPOSITION: The breasts are heterogeneously dense, which may obscure small masses. RIGHT BREAST: Triangular skin marker has been placed at the location of the palpable concern at approximately 3 o'clock position. There is a 2.8 cm oval mass in the lower inner quadrant of the right breast at approximately 3 cm from the nipple, best appreciated on the tomosynthesis MLO image and tomosynthesis CC image . This mass is essentially unchanged from previous mammogram from October 2016. No significant calcifications or other abnormalities are seen. Targeted ultrasound of the right breast was performed at the location of the palpable area. -Survey demonstrates a 2.5 x 2.3 x 1.5 cm simple cyst at 3:00 position right 1 cm from the nipple. No internal vascularity demonstrated with color Doppler evaluation. This cyst correlates with the mammographic finding. -An additional 1.2 x 0.7 x 1.7 cm simple cyst is identified at 3:00 position at 1 cm from the nipple. No internal vascularity demonstrated with color Doppler evaluation. LEFT BREAST: Two triangular skin markers have been placed at the location of the palpable concern, one located in the upper outer quadrant and a second one located in the upper inner quadrant. - Adjacent to the marker in the upper outer quadrant, there is a faintly seen 1.5 cm oval mass at 1.5 cm from the nipple that has decreased in size from previous study in October 2016 (best appreciated on the tomosynthesis MLO image and tomosynthesis CC image ). Targeted ultrasound was performed at the location of the palpable concern at 1 o'clock position. The survey shows two adjacent cysts at 1:00 position at 1 cm from the nipple: one measuring 1.0 x 0.7 x 0.9 cm simple cyst and a 0.7 x 0.5 x 0.7 cm cyst with internal echoes. They probably correlates with the previously described cysts at 3 o'clock position, now, markedly decreased in size. An additional 0.5 x 0.4 x 0.8 cm simple cyst was identified at 1:00 position at 2 cm from the nipple - No discrete masses identified immediately adjacent to the palpable marker at upper inner quadrant at areolar edge. Targeted ultrasound of the palpable concern at approximately 11 o'clock position. The survey shows 0.9 x 0.4 x 0.8 cm cyst with a incomplete internal septation at 11:00 position at 0 cm with a nipple. No calcifications or other abnormalities are seen. Procedure Note Khris Garcia MD - 10/26/2017 History: Bilateral lumps. STUDIES: 1. Bilateral diagnostic mammography with tomosynthesis and CAD 2. Targeted ultrasound of the right breast 3. Targeted ultrasound of the left breast TECHNIQUE: Bilateral full-field digital diagnostic mammography is obtainedand read in conjunction with computer-aided detection. Tomosynthesis aswell as 2-D C view imaging were obtained. COMPARISON: Previous right breast ultrasound in October 2013 describes a 1.8 cm simplecyst at 3 o'clock position Previous left breast ultrasound in October 2016 describes left breast cystwith thin septation at 3 o'clock position. BREAST COMPOSITION: The breasts are heterogeneously dense, which mayobscure small masses. RIGHT BREAST: Triangular skin marker has been placed at the location ofthe palpable concern at approximately 3 o'clock position. There is a 2.8cm oval mass in the lower inner quadrant of the right breast atapproximately 3 cm from the nipple, best appreciated on the tomosynthesisMLO image and tomosynthesis CC image . This mass is essentiallyunchanged from previous mammogram from October 2016. No significantcalcifications or other abnormalities are seen. Targeted ultrasound of the right breast was performed at the location ofthe palpable area. -Survey demonstrates a 2.5 x 2.3 x 1.5 cm simple cyst at 3:00 positionright 1 cm from the nipple. No internal vascularity demonstrated withcolor Doppler evaluation. This cyst correlates with the mammographicfinding. -An additional 1.2 x 0.7 x 1.7 cm simple cyst is identified at 3:00position at 1 cm from the nipple. No internal vascularity demonstratedwith color Doppler evaluation. LEFT BREAST: Two triangular skin markers have been placed at the locationof the palpable concern, one located in the upper outer quadrant and asecond one located in the upper inner quadrant. - Adjacent to the marker in the upper outer quadrant, there is a faintlyseen 1.5 cm oval mass at 1.5 cm from the nipple that has decreased in sizefrom previous study in October 2016 (best appreciated on the tomosynthesisMLO image and tomosynthesis CC image ). Targeted ultrasound wasperformed at the location of the palpable concern at 1 o'clock position.The survey shows two adjacent cysts at 1:00 position at 1 cm from thenipple: one measuring 1.0 x 0.7 x 0.9 cm simple cyst and a 0.7 x 0.5 x 0.7cm cyst with internal echoes. They probably correlates with the previouslydescribed cysts at 3 o'clock position, now, markedly decreased in size. Anadditional 0.5 x 0.4 x 0.8 cm simple cyst was identified at 1:00 positionat 2 cm from the nipple - No discrete masses identified immediately adjacent to the palpablemarker at upper inner quadrant at areolar edge. Targeted ultrasound of thepalpable concern at approximately 11 o'clock position. The survey shows0.9 x 0.4 x 0.8 cm cyst with a incomplete internal septation at 11:00position at 0 cm with a nipple. No calcifications or other abnormalities are seen. IMPRESSION: RIGHT BREAST: Simple cyst correlates with the palpable concern. Benignfindings, no evidence of malignancy. Patient may return to routinescreening mammogram. LEFT BREAST: Simple and complicated cysts correlate with the palpableconcerns. Benign findings, no evidence of malignancy. Patient may returnto routine screening mammogram. BI-RADS CATEGORY: 2 - Benign finding. DENSITY: The breast tissue is heterogeneously dense, an appearance whichlowers the sensitivity of mammography. POS - CDHMAM2 us Elsa Burgos MD [facility] US BREAST Final Result documented in this encounter Visit Diagnoses Diagnosis Bilateral breast lump- Primary Bilateral breast lump documented in this encounter Care Teams Director Of Revenue Relationship Specialty Start Date End Date Primo Nieves MD, MPH [address] [place] [address] [email or web address] PCP - General Family Medicine 10/26/17 04/18/21 Primo Nieves MD, MPH [address] [place] [address] [email or web address] PCP - General Family Medicine 04/19/21 09/12/23 Augusta Odom NP [address] [place] [address] PCP - General Nurse Practitioner 09/13/23 Kayley Hawkins NP [address] [place] [address] [place] [address] Historical LMR Provider 02/28/17 Dhara Greenwood CNM [address] [place] [address] Historical LMR Provider 02/28/17 2 Baldo Sloan MD [address] [place] [address] [address] [place] [address] [email or web address] Historical LMR Provider 02/28/17 05/18/21 Nelida Rogers NP [address] [place] [address] [email or web address] Historical LMR Provider 02/28/17 05/18/21 Augusta Odom NP [address] [place] [address] Historical LMR Provider 02/28/17 documented as of this encounter Additional Source Comments The information contained in this document represents components of the legal health record. It is not the complete legal health record.[facility]
--- OUTSIDE RECORDS SUMMARY | 2025-02-03 10:01 | XMS_ITS | Clinical Summary ---
Author Organization [facility] Address [address] [place] [address] Phone Care Team Providers Care Crusher Setter Name Role Phone Augusta Odom JEAN Primary Care Provider [phone] Allergies No known active allergies Medications gabapentin (NEURONTIN) 100 mg capsule PLEASE SEE ATTACHED FOR DETAILED DIRECTIONS Active clonazePAM (KlonoPIN) 0.5 mg tablet TAKE 1 TABLET BY MOUTH 2 TIMES A DAY MAY TAKE ADDTL 1 TAB NEEDED FOR ANXIETY Active estradioL (Natalie) 0.025 mg/24 hr 1 PATCH(ES) 2 TIMES A WEEK, TRANSDERMAL ROUTE 09/14/19 24 Active progesterone (PROMETRIUM) 100 mg capsule Take 1 capsule (100 mg total) by mouth 1 (one) time each day. Active QUEtiapine (SEROquel) 25 mg tablet Take 1 tablet (25 mg total) by mouth at bedtime as needed. Active traZODone (DESYREL) 50 mg tablet TAKE 3 AND 1/2 TABLETS (175 MG) BY MOUTH ONCE DAILY AT BEDTIME 08/25/19 24 Active fluticasone propionate (FLONASE) 50 mcg/actuation nasal spray 2 SPRAYS NASALLY DAILY 08/11/19 14 Active plecanatide (Trulance) 3 mg tabletIndication s:Irritable bowel syndrome with constipation Take 1 tablet (3 mg total) by mouth 1 (one) time each day. 90 each 3 02/02/20 25 026 Active linaCLOtide (Linzess) 72 mcg capsuleIndicatio ns:Irritable bowel syndrome with constipation Take 1 capsule (72 mcg total) by mouth 1 (one) time each day. 30 each 5 01/21/20 25 025 Discontin ued(Cost of medicatio n) Active Problems Problem Noted Date Diagnosed Date Allergic reaction 11/10/2024 Allergic rhinitis 11/10/2024 Dysuria 11/10/2024 Pain in throat 11/10/2024 Urinary tract infectious disease 11/10/2024 Internal hemorrhoids 03/25/2024 Vasomotor symptoms due to menopause 07/18/2022 Generalized anxiety disorder 06/22/2014 Dyssomnia 12/17/2007 Acne 09/04/2006 Foreign body in ear 09/04/2006 Acute cystitis 03/12/2006 Panic disorder without agoraphobia 08/15/2005 Contusion 08/24/2004 Sprain of foot 06/03/2004 Anxiety state 10/21/2002 Major depression, melancholic type 10/21/2002 Nausea and vomiting 10/18/2002 Amenorrhea 11/24/2001 Increased frequency of urination 11/24/2001 Allergic rhinitis due to pollen 09/02/2001 Malaise and fatigue 07/07/2001 Premenstrual tension syndrome 07/07/2001 Encounters Date Type Department Care Team Description 01/20/2025 Telephone Gastroenterology - [address] [address] Donya Salter PA 01/20/2025 Telephone Gastroenterology - [address] [address] Priscilla Gunn [place] 01/18/2025 Telephone Gastroenterology - [address] [address] Donya Salter PA 12/07/2024 2:20 PM EDT Consult Gastroenterology - [address] [address] Donya Salter PA Irritable bowel syndrome with constipation (Primary Dx) from Last 3 Months Surgical History Surgery Date Site/Laterality Comments COLONOSCOPY 03/11/2024 - 04/09/2024 5 yr recall SECTION, LOW TRANSVERSE 1999, 2002 Medical History Medical History Date Comments Motion sickness 1980 Chronic constipation 2014 Colon polyp 2019 Irritable bowel syndrome 2018 Food intolerance Gluten , dairy Anxiety 1995 Depression 202 Family History Medical History Relation Name Comments Alcohol abuse Father German Colon polyps Father German Relation Name Status Comments Father German Social History Tobacco Use Types Packs/Day Years Used Date Smoking Tobacco: Never Smokeless Tobacco: Never Alcohol Use Standard Drinks/Week Comments Not Currently 0 (1 standard drink = 0.6 oz pur e alcohol) Do not drink Comments Unknown Sex and Gender Information Value Date Recorded Sex Assigned at Female 07/15/2024 10:53 AM EST Legal Sex Female 11:39 AM EDT Gender Identity Female 07/15/2024 10:53 AM EST Sexual Orientation Straight 07/15/2024 10 :53 AM EST Obstetrics History Last Filed Vital Signs Vital Sign Reading Time Taken Comments Blood Pressure - - Pulse - - Temperature - - Respiratory Rate - - Oxygen Saturation - - Inhaled Oxygen Concentration - - Weight 51.3 kg (113 lb) 12/07/2024 2:17 PM EDT Height 157.5 cm (5' 2 ) 12/07/2024 2:17 PM EDT Body Mass Index 20.67 12/07/2024 2:17 PM EDT Plan of Treatment Upcoming Encounters Date Type Department Care Team (Late st Contact Info) Description 02/08/2025 11:20 AM EDT Office Visit Gastroenterology - [address] [place] [address] aRdha Reynolds [address] [address] Health Maintenance Due Date Last Done Comments Hepatitis B Vaccines (1 of 3 - 19+ 3-dose series) 1989 Pneumococcal Vaccine: 50+ Years (1 of 2 - PCV) 1989 Zoster Vaccines (1 of 2) 1989 Cervical Cancer Screening: P ap Smear 1991 COVID-19 Vaccine (3 - Pfizer risk series) 02/06/2021 01/09/2021, 12/18/2020 HIV Screening 02/24/2024 Hepatitis C Screening 02/24/2024 Social Influencers of Health Screening 02/24/2024 Depression Screening 05/11/2024 Influenza Vaccine (#1) 2025 6, 04/01/2005, 03/31/2003 Breast Cancer Screening 07/07/2026 07/07/19 25, 07/07/2024 DTaP,Tdap,and Td Vaccines (3 - Td or Tdap) 07/23/2028 07/23/2018, 09/04/2008 Colorectal Cancer Screening: Colonoscopy 02/14/2029 02/14/2019 RSV Immunization Adult Patients (1 - 1-dose 75+ series) 2045 HIB Vaccines Aged Out No longer eligi ble based on patient's age to complete this topic HPV Vaccines Aged Out No longer eligi ble based on patient's age to complete this topic Hepatitis A Vaccines Aged Out No long er eligible based on patient's age to complete this topic IPV Vaccines Aged Out No longer eligi ble based on patient's age to complete this topic MMR Vaccines Aged Out No longer eligi ble based on patient's age to complete this topic Meningococcal ACWY Vaccine Aged Out N o longer eligible based on patient's age to complete this topic Meningococcal B Vaccine Aged Out No l onger eligible based on patient's age to complete this topic RSV Immunization Patients Under 20 months Aged Out No longer eligible b ased on patient's age to complete this topic Varicella Vaccines Aged Out No longer eligible based on patient's age to complete this topic Medical Devices Implanted Type Area Explosive Ordnance Manager Device Identifier Shelf Expiration Date Model / Serial / Lot Marker Rgd Shrp Brst Bx Coil 1 - [id number] - [id number] Implanted:Qty: 1 on 07/20/2024 by Pawel Dunn MD at [facility] Imaging Implants Left: Breast [employer] [id number] 02/17/2027 4010-02- 15-T1 / [id number] / [id number] Procedures Procedure Name Priority Date/Time Associated Diagnosis Comments MG MAMMO DIGITAL DIAGNOSTIC W JJ BILAT Routine 07/07/2024 2:31 PM EST EXTERNAL COLONOSCOPY REPORT Routine 02/14/2019 10:08 AM EDT from Last 3 Months or Most Recently Relevant to Health Maintenance Results * MG Mammo Digital Diagnostic w Jj bilat (07/07/2024 2:31 PM EST) Anatomical Region Laterality Modality Breast Bilateral Mammography Casey COLON IM BI PROCEDURES Final Result * External Colonoscopy Report (02/14/2019 10:08 AM EDT) Anatomical Region Laterality Modality Endoscopy us Historical Provider GI~PROCEDURE ORDERABLES F inal Result from Last 3 Months or Most Recently Relevant to Health Maintenance Insurance Care Teams Crusher Setter Relationship Specialty Start Date End Date Augusta Odom FNP [address] [place] [address] PCP - General Nurse Practitioner 03/29/24
--- OUTSIDE RECORDS SUMMARY | 2025-02-03 10:01 | XMS_ITS | Encounter Summary ---
Author Organization [facility] Address [address] [place], [place] [id number] Phone Care Team Providers Care Rug Cleaner Hand Name Role Phone Kayley Hawkins GEOMORPHOLOGY TEACHER Unavailable Dhara Greenwood CNM Unavailable Baldo Sloan MD Unavailable Nelida Rogers GEOMORPHOLOGY TEACHER Unavailable Augusta Odom GEOMORPHOLOGY TEACHER Unavailable [phone] Primo Nieves MD, MPH Primary Care Provider + Primo Nieves MD, MPH Primary Care Provider + Augusta Odom GEOMORPHOLOGY TEACHER Primary Care Provider Encounter Details Date Type Department Care Team (Latest Contact Info) Description 06/07/2018 Transcribe Orders [facility] Laboratory [address] [address] Haritha Rodriguez PA-C [address], [address] [place] [address] Bloating (Primary Dx); Diarrhea, unspecified type; Constipation, unspecified constipation type Social History Tobacco Use Types Packs/Day Years [...] documented as of this encounter Results * TSH (06/07/2018 12:29 PM EST) TSH 1.36 0.27 - 4.20 uIU/mL [facility] Blood 06/07/2018 12:2 9 PM EST 06/07/2018 12:35 PM EST Haritha Rodriguez PA-C LAB BLOOD ORDERABLES Final Resu lt Performing Organization Address City/[facility]/ZIP Co de Phone Number [address] [address] * C-Reactive Protein (06/07/2018 12:29 PM EST) C REACTIVE PROTEIN <0.3 0.0 - 4.0 mg/L [facility] Blood 06/07/2018 12:2 9 PM EST 06/07/2018 12:35 PM EST Haritha Rodriguez PA-C LAB BLOOD ORDERABLES Final Resu lt [address] [address] * Comprehensive metabolic panel (06/07/2018 12:29 PM EST) SODIUM 140 133 - 146 mmol/L [facility] POTASSIUM 4.1 3.3 - 5.1 mmol/L [facility] CHLORIDE 101 96 - 108 mmol/L [facility] CO2 25 21 - 35 mmol/L [facility] BUN 14 6 - 19 mg/dL [facility] CREATININE 0.70 0.5 - 1.5 mg/dL [facility] GLUCOSE 93 70 - 99 mg/dL [facility] ALBUMIN 4.7 3.9 - 4.8 g/dL [facility] TOTAL PROTEIN 7.5 6.5 - 8.0 g/dL [facility] CALCIUM 9.3 8.4 - 10.3 mg/dL [facility] ALKALINE PHOSPHATASE 65 39 - 117 U/L [facility] TOTAL BILIRUBIN 0.9 0.0 - 1.2 mg/dL [facility] AST 22 0 - 37 U/L [facility] ALT 28 0 - 40 U/L [facility] GLOBULIN 2.8 1 - 4.8 g/dL [facility] EGFR 103 >59 mL/min/1.7 3m2 [facility] Comment:If patient is black, multiply result by 1.159. Estimated glomerular filtration rate calculated using the CKD-EPI equation. ANION GAP 18 10 - 20 mmol/L [facility] Blood 06/07/2018 12:2 9 PM EST 06/07/2018 12:35 PM EST us Haritha Rodriguez PA-C LAB BLOOD ORDERABLES Final Resu lt Performing Organization Address City/State/[facility] Co de Phone Number [facility] [address] [place] [address] * (ABNORMAL) CBC (06/07/2018 12:29 PM EST) WBC 7.43 3.40 - 11.20 K/uL [facility] RBC 4.89(H) 3.80 - 4.80 M/uL [facility] HGB 14.3 12.0 - 15.0 g/dL [facility] HCT 42.3 36.0 - 46.0 % [facility] PLT 317 130 - 400 K/uL [facility] MCV 86.5 79.0 - 98.0 fL [facility] MCH 29.2 27.0 - 34.8 pg [facility] MCHC 33.8 31.5 - 36.0 g/dL [facility] RDW 12.3 10.8 - 14.6 % [facility] MPV 9.9 9.4 - 12.4 fl [facility] NRBC 0.00 0.00 /100 WBCs [facility] ABSOLUTE NRBC 0.00 0.00 K/uL [facility] Blood 06/07/2018 12:2 9 PM EST 06/07/2018 12:35 PM EST Haritha Rodriguez PA-C LAB BLOOD ORDERABLES Final Resu lt Performing Organization Address [facility]/ZIP Co de Phone Number [address] [address] * Immunoglobulin A (06/07/2018 12:29 PM EST) IgA 158 70 - 400 mg/dL [facility] Blood 06/07/2018 12:2 9 PM EST 06/07/2018 12:35 PM EST us Haritha Rodriguez PA-C LAB BLOOD ORDERABLES Final Resu lt Performing Organization Address [facility] Co de Phone Number [address] [address] * Tissue transglutaminase IgA (06/07/2018 12:29 PM EST) TTG IGA ANTIBODY <1.2 <4.0 (Negative) U/mL [facility] Blood 06/07/2018 12:2 9 PM EST 06/07/2018 12:36 PM EST Haritha Rodriguez PA-C LAB BLOOD ORDERABLES Final Resu lt Performing Organization Address [facility] Co de Phone Number [facility] [address] [place] [address] documented in this encounter Visit Diagnoses Diagnosis Bloating- Primary Flatulence, eructation, and gas pain Diarrhea, unspecified type Constipation, unspecified constipation type documented in this encounter Care Teams Rug Cleaner Hand Relationship Specialty Start Date End Date Primo Nieves MD, MPH [address] [place] [address] PCP - General Family Medicine 10/26/17 04/18/21 Primo Nieves MD, MPH [address] [place] [address] PCP - General Family Medicine 04/19/21 09/12/23 Augusta Odom NP [address] [place] [address] PCP - General Nurse Practitioner 09/13/23 Kayley Hawkins NP [address] [place] [address] Historical LMR Provider 02/28/17 Dhara Greenwood CNM [address] [place] [address] Historical LMR Provider 02/28/17 2 Baldo Sloan MD [address] [place] [address] [email or web address] Historical LMR Provider 02/28/17 05/18/21 Nelida Rogers NP [address] [place] [address] [email or web address] Historical LMR Provider 02/28/17 05/18/21 Augusta Odom NP [address] [place] [address] Historical LMR Provider 02/28/17 documented as of this encounter Additional Source Comments The information contained in this document represents components of the legal health record. It is not the complete legal health record.[facility]
--- OUTSIDE RECORDS SUMMARY | 2025-02-03 10:02 | XMS_ITS | Encounter Summary ---
Author Organization [facility] Address [address] [place], [place] [id number] Phone Care Team Providers Care Assistance Representative Name Role Phone Kayley Hawkins DIESEL ENGINE MECHANIC APPRENTICE Unavailable Dhara [place] CNM Unavailable Baldo Sloan MD Unavailable Nelida Rogers DIESEL ENGINE MECHANIC APPRENTICE Unavailable Augusta Odom DIESEL ENGINE MECHANIC APPRENTICE Unavailable [phone] Primo Nieves MD, MPH Primary Care Provider + Primo Nieves MD, MPH Primary Care Provider + Augusta Odom DIESEL ENGINE MECHANIC APPRENTICE Primary Care Provider Encounter Details Date Type Department Care Team (Late st Contact Info) Description 03/19/2020 Procedure Pass [address] [address] Social History Tobacco Use Types Packs/Day Years [...] on filedocumented in this encounter Care Teams Assistance Representative Relationship Specialty Start Date End Date Primo Nieves MD, MPH [address] [place] [address] [email or web address] PCP - General Family Medicine 10/26/17 04/18/21 Primo Nieves MD, MPH [address] [place] [address] [email or web address] PCP - General Family Medicine 04/19/21 09/12/23 Augusta Odom NP [address] [place] [address] PCP - General Nurse Practitioner 09/13/23 Kayley Hawkins NP [address] [place] [address] Historical LMR Provider 02/28/17 Dhara [place] CNM [address] [place] [address] Historical LMR Provider 02/28/17 2 Baldo Sloan MD [address] [place] [address] [email or web address] Historical LMR Provider 02/28/17 05/18/21 Nelida Rogers NP [address] [place] [address] Historical LMR Provider 02/28/17 05/18/21 Augusta Odom DIESEL ENGINE MECHANIC APPRENTICE [address] [place] [id number] Historical LMR Provider 02/28/17 documented as of this encounter Additional Source Comments The information contained in this document represents components of the legal health record. It is not the complete legal health record.[facility]
--- OUTSIDE RECORDS SUMMARY | 2025-02-03 10:02 | XMS_ITS | Encounter Summary ---
Author Organization [facility] Address [address] [place] [address] Care Team Providers Care Interactive Multimedia Designer Name Role Phone Augusta Odom TOWEL DISTRIBUTOR Primary Care Provider [phone] Reason for Visit * Reason Onset Date Comments PRIOR AUTH 01/20/2025 Encounter Details Date Type Department Care Team (Late st Contact Info) Description 01/20/2025 Telephone Gastroenterology - [address] [place] [address] Donya Salter PA [address] [place] [address] Social History Tobacco Use Types Packs/Day Years [...] Orientation Straight 07/15/2024 10 :53 AM EST documented as of this encounter Progress Notes * Ana Rosa Hernandez - 02/01/2025 3:58 PM EDT Prior auth denial in media. * Ronit Nesbitt MA - 01/26/2025 2:07 PM EDT PA submitted with clinicals. * Ana Rosa Hernandez - 01/20/2025 10:58 AM EDT Patient calling stating that she needs a prior authorization for her [employer], please submit and advise patient once it is all set. documented in this encounter Plan of Treatment Upcoming Encounters Date Type Department Care Team (Late st Contact Info) Description 02/08/2025 11:20 AM EDT Office Visit Gastroenterology - [address] [place] [phone] Radha Reynolds PA [address] [place] [address] documented as of this encounter Visit Diagnoses Not on filedocumented in this encounter Care Teams Interactive Multimedia Designer Relationship Specialty Start Date End Date Augusta Odom FNP [address] [place] [address] PCP - General Nurse Practitioner 03/29/24 documented as of this encounter
--- OUTSIDE RECORDS SUMMARY | 2025-02-03 10:02 | XMS_ITS ---
Author Name [facility] Organization Unknown History of Medication Use Medication Directions Dispensed Refills Start Date End Date Stat us clonazePAM 0.5 MG clonazePAM 0.5 MG active Progesterone Progesterone active Encounters Encounter Type Encounter Reason Primary Diagnosis Location Date Ambulatory [facility] 02/08/2024 Ambulatory [facility] 12/10/2023 Ambulatory [facility] 09/30/2023 Care Team Organization Name Specialty Phone Email Start Date End Da [facility] 10/01/2023
--- OUTSIDE RECORDS SUMMARY | 2025-02-03 10:02 | XMS_ITS | Encounter Summary ---
Author Organization [facility] Address [address] [facility] [address] [place] [address] Phone Care Team Providers Care Pump Erector Name Role Phone Kayley Hawkins STORE OPERATIONS MANAGER Unavailable [phone] Primo Nieves MD, MPH Primary Care Provider + Augusta Odom NP Primary Care Provider [phone] Encounter Details Date Type Department Care Team (Late st Contact Info) Description 09/17/2022 Procedure Pass [facility], [address] [address] Social History Tobacco Use Types Packs/Day Years Used Date Smoking Tobacco: Never Smokeless Tobacco: Never Alcohol Use Standard Drinks/Week Comments Not Currently 0 (1 standard drink = 0.6 oz pur e alcohol) Education Answer Date Recorded Are you interested in more education? Not on mingo e 09/05/2022 Are you concerned about learning? Not on file 09/05/2022 No 09/05/2022 No 09/05/2022 Comments No Sex and Gender Information Value [...] on filedocumented in this encounter Care Teams Pump Erector Relationship Specialty Start Date End Date Primo Nieves MD, MPH [address] [place] [address] [email or web address] PCP - General Family Medicine 04/19/21 09/12/23 Augusta Odom NP [address] [place] [address] PCP - General Nurse Practitioner 09/13/23 Kayley Hawkins NP [address] [place] [address] Historical LMR Provider 02/28/17 documented as of this encounter Additional Source Comments The information contained in this document represents components of the legal health record. It is not the complete legal health record.[facility]
--- OUTSIDE RECORDS SUMMARY | 2025-02-03 10:02 | XMS_ITS | Patient Health Record ---
Author Organization [facility] Address [address] [place] [id number] Care Team Providers Care Supervisor Clam Bed Name Role Phone Naomi Grady Unavailable [phone] Sha Lopez Unavailable [phone] Reason For Referral No Information Medications Medication SIG (Take, Route, Frequency, Duration) Notes Start Date End Date Status Estrogens, Conjugated BHRT Active Progesterone 50mg days 15-25 A ctive clonazePAM 0.5 MG 1 tablet Orally Once a day Active Gabapentin 800 MG 1 tablet Orally Once a day Active Problems Problem Type SNOMED Code ICD Code Onset Dates Problem Status W/U Status Risk Notes Problem Iron deficiency anemia (68181834) Iron deficiency anemia, unspecified (D50.9) Active confirmed Problem Vitamin D deficiency (98922883) Vitamin D deficiency, unspecified (E55.9) Active confirmed Problem 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) Active confirmed Problem Unspecified menopausal and perimenopausal disorder (N95.9) Active confirmed Vital Signs Heart Rate 74 /min 02/08/2024 Temperature 99.0 degrees Fahrenheit 02/08/2024 Respiratory Rate 14 /min 02/08/2024 Blood pressure diastolic 68 mm Hg 02/08/2024 Oximetry 96 % 02/08/2024 Height 63 in 02/08/2024 Blood pressure systolic 110 mm Hg 02/08/2024 Weight 107 lbs 02/08/2024 BMI 18.95 kg/m2 02/08/2024 Encounters Encounter Location Date Provider Diagnosis [address] [id number] 02/08/2024 Sha Lopez Other specified nonscarring hair loss L65.8 ; Unspecified menopausal and perimenopausal disorder N95.9 ; Other insomnia not due to a substance or known physiological condition F51.09 ; Other fatigue R53.83 ; Vitamin D deficiency, unspecified E55.9 and Iron deficiency anemia, unspecified D50.9 Assessments Encounter Date Diagnosis (ICD Code) Assessment Notes Treatment Notes Treatment Clinical Notes Section Notes 02/08/2024 Other specified nonscarring hair loss (ICD-10 - L65.8) Patient presents to clinic for establishing care with naturopathic physician. Patient's main concern is hair loss. Patient also has concerns with anxiety and insomnia and hormone imbalance which she believes are all relating to hair loss. For hormone support perimenopausal patient has started biological hormone replacement therapy with testosterone which seem to cause elevated levels associated with more hair loss so she discontinued this. Patient is now on estrogen and progesterone only but still seeing hair loss. Patient admits that she is very anxious revolving around her hair and she counts the number of hairs she loses when she washes her hair every other day. Patient's DHEA is still high testosterone is high normal at the upper limit. I recommend patient's start saw palmetto 500 mg once a day to support healthy metabolism of testosterone detoxification. Patient also had recently gotten DIM I recommended patient to go forward with this supplement as this can help with estrogen balance. Patient also to take a special vitamin supplement of biotin paired with Ortho Sililic acid, for hair follicle strength. Patient to get updated lab work done and follow-up in 8 weeks for reassessment. 02/08/2024 Unspecified menopausal and perimenopausal disorder (ICD-10 - N95.9) Patient presents to clinic for establishing care with naturopathic physician. Patient's main concern is hair loss. Patient also has concerns with anxiety and insomnia and hormone imbalance which she believes are all relating to hair loss. For hormone support perimenopausal patient has started biological hormone replacement therapy with testosterone which seem to cause elevated levels associated with more hair loss so she discontinued this. Patient is now on estrogen and progesterone only but still seeing hair loss. Patient admits that she is very anxious revolving around her hair and she counts the number of hairs she loses when she washes her hair every other day. Patient's DHEA is still high testosterone is high normal at the upper limit. I recommend patient's start saw palmetto 500 mg once a day to support healthy metabolism of testosterone detoxification. Patient also had recently gotten DIM I recommended patient to go forward with this supplement as this can help with estrogen balance. Patient also to take a special vitamin supplement of biotin paired with Ortho Sililic acid, for hair follicle strength. Patient to get updated lab work done and follow-up in 8 weeks for reassessment. 02/08/2024 Other insomnia not due to a substance or known physiological condition (ICD-10 - F51.09) Patient presents to clinic for establishing care with naturopathic physician. Patient's main concern is hair loss. Patient also has concerns with anxiety and insomnia and hormone imbalance which she believes are all relating to hair loss. For hormone support perimenopausal patient has started biological hormone replacement therapy with testosterone which seem to cause elevated levels associated with more hair loss so she discontinued this. Patient is now on estrogen and progesterone only but still seeing hair loss. Patient admits that she is very anxious revolving around her hair and she counts the number of hairs she loses when she washes her hair every other day. Patient's DHEA is still high testosterone is high normal at the upper limit. I recommend patient's start saw palmetto 500 mg once a day to support healthy metabolism of testosterone detoxification. Patient also had recently gotten DIM I recommended patient to go forward with this supplement as this can help with estrogen balance. Patient also to take a special vitamin supplement of biotin paired with Ortho Sililic acid, for hair follicle strength. Patient to get updated lab work done and follow-up in 8 weeks for reassessment. 02/08/2024 Other fatigue (ICD-10 - R53.83) Patient presen ts to clinic for establishing care with naturopathic physician. Patient's main concern is hair loss. Patient also has concerns with anxiety and insomnia and hormone imbalance which she believes are all relating to hair loss. For hormone support perimenopausal patient has started biological hormone replacement therapy with testosterone which seem to cause elevated levels associated with more hair loss so she discontinued this. Patient is now on estrogen and progesterone only but still seeing hair loss. Patient admits that she is very anxious revolving around her hair and she counts the number of hairs she loses when she washes her hair every other day. Patient's DHEA is still high testosterone is high normal at the upper limit. I recommend patient's start saw palmetto 500 mg once a day to support healthy metabolism of testosterone detoxification. Patient also had recently gotten DIM I recommended patient to go forward with this supplement as this can help with estrogen balance. Patient also to take a special vitamin supplement of biotin paired with Ortho Sililic acid, for hair follicle strength. Patient to get updated lab work done and follow-up in 8 weeks for reassessment. 02/08/2024 Vitamin D deficiency, unspecified (ICD-10 - E55.9) Patient present s to clinic for establishing care with naturopathic physician. Patient's main concern is hair loss. Patient also has concerns with anxiety and insomnia and hormone imbalance which she believes are all relating to hair loss. For hormone support perimenopausal patient has started biological hormone replacement therapy with testosterone which seem to cause elevated levels associated with more hair loss so she discontinued this. Patient is now on estrogen and progesterone only but still seeing hair loss. Patient admits that she is very anxious revolving around her hair and she counts the number of hairs she loses when she washes her hair every other day. Patient's DHEA is still high testosterone is high normal at the upper limit. I recommend patient's start saw palmetto 500 mg once a day to support healthy metabolism of testosterone detoxification. Patient also had recently gotten DIM I recommended patient to go forward with this supplement as this can help with estrogen balance. Patient also to take a special vitamin supplement of biotin paired with Ortho Sililic acid, for hair follicle strength. Patient to get updated lab work done and follow-up in 8 weeks for reassessment. 02/08/2024 Iron deficiency anemia, unspecified (ICD-10 - D50.9) Patient present s to clinic for establishing care with naturopathic physician. Patient's main concern is hair loss. Patient also has concerns with anxiety and insomnia and hormone imbalance which she believes are all relating to hair loss. For hormone support perimenopausal patient has started biological hormone replacement therapy with testosterone which seem to cause elevated levels associated with more hair loss so she discontinued this. Patient is now on estrogen and progesterone only but still seeing hair loss. Patient admits that she is very anxious revolving around her hair and she counts the number of hairs she loses when she washes her hair every other day. Patient's DHEA is still high testosterone is high normal at the upper limit. I recommend patient's start saw palmetto 500 mg once a day to support healthy metabolism of testosterone detoxification. Patient also had recently gotten DIM I recommended patient to go forward with this supplement as this can help with estrogen balance. Patient also to take a special vitamin supplement of biotin paired with Ortho Sililic acid, for hair follicle strength. Patient to get updated lab work done and follow-up in 8 weeks for reassessment. 02/08/2024 Other Time spent preparing to see the patient: 3m Appointment Start time: 1030 End time: 1145 Post appointment time documenting clinical information in the medical record & care coordination: 7m Total Time:85m Inclusive of: preparing to see the patient via reviewing previous chart note. obtaining and/or reviewing separately obtained history, and previous lab work. performing a medically appropriate examination and/or evaluation. counseling and educating the patient. ordering medications, tests, or procedures. Referring and communicating with other health human services care specialist. documenting clinical information in the medical record. independently interpreting results . communicating results to the patient for care coordination (not separately reported) Patient presents to clinic for establishing care with naturopathic physician. Patient's main concern is hair loss. Patient also has concerns with anxiety and insomnia and hormone imbalance which she believes are all relating to hair loss. For hormone support perimenopausal patient has started biological hormone replacement therapy with testosterone which seem to cause elevated levels associated with more hair loss so she discontinued this. Patient is now on estrogen and progesterone only but still seeing hair loss. Patient admits that she is very anxious revolving around her hair and she counts the number of hairs she loses when she washes her hair every other day. Patient's DHEA is still high testosterone is high normal at the upper limit. I recommend patient's start saw palmetto 500 mg once a day to support healthy metabolism of testosterone detoxification. Patient also had recently gotten DIM I recommended patient to go forward with this supplement as this can help with estrogen balance. Patient also to take a special vitamin supplement of biotin paired with Ortho Sililic acid, for hair follicle strength. Patient to get updated lab work done and follow-up in 8 weeks for reassessment. Plan Of Treatment No Information Medical (General) History Medical History History ICD Code Anxiety insomnia Surgical History Surgery Date(Month/Year) 2x c-sections
--- OUTSIDE RECORDS SUMMARY | 2025-02-03 10:02 | XMS_ITS | Encounter Summary ---
Author Organization [facility] Address [address] [facility] [address] [place] [address] Phone Care Team Providers Care Technical Professional Name Role Phone Kayley Hawkins ANIMAL DOCTOR Unavailable [phone] Augusta Odom ANIMAL DOCTOR Primary Care Provider [phone] Encounter Details Date Type Department Care Team (Late st Contact Info) Description 07/07/2024 Ancillary Orders [facility], [address] [address] Casey Augustin PA [address] [place] [address] Lump in lower inner quadrant of left breast (Primary Dx) Social History Tobacco Use Types [...] documented as of this encounter Results * (ABNORMAL) BI US BREAST LIMITED (BILATERAL) (07/07/2024 11:07 AM EST) Anatomical Region Laterality Modality Breast Left, Breast Right, Breast Bilateral Bila teral Ultrasound 07/07/2024 10:1 9 AM EST Impressions 07/07/2024 11:53 AM EST 1. 1.3 cm solid mass correlating with the palpable abnormality in the periareolar 8:00 position of the left breast 1 cm deep to the nipple on ultrasound. This could represent a papilloma. Ultrasound-guided biopsy is recommended. 2. Benign cyst correlating with palpable lump on the right. No other findings suspicious for malignancy in either breast. BI-RADS 4 SUSPICIOUS Results and recommendations were communicated to the patient at time of examination. Narrative 07/07/2024 11:53 AM EST BI MAMMOGRAM DIAGNOSTIC WITH TOMOSYNTHESIS WITH CAD (BILATERAL), BI US BREAST LIMITED (BILATERAL) Additional patient information: Patient presents with new palpable lump on the left and new palpable lump on the right. There is a history of bilateral sonographically proven cysts. COMPARISON: Comparison is made with relevant prior imaging. Breast composition: The breast tissue is heterogeneously dense which may obscure small masses. FINDINGS: Right Mammogram: No mass visible in the area of the probable lump. A sonographically proven cyst in the mid inner aspect of the breast is much smaller than on 10/26/2017. No suspicious mass or evidence of architectural distortion. No suspicious microcalcifications. Right Ultrasound: Targeted ultrasound was performed in the area of clinical concern as indicated by the patient. Correlating with the palpable lump in the periareolar outer aspect is a 1.2 cm x 1.1 cm x 0.8 cm cyst with benign characteristics which is obscured on mammography. No other sonographic abnormality. Left Mammogram: There is partially obscured new mass in the periareolar lower inner aspect correlating with the palpable lump. No other suspicious mass or architectural distortion. No suspicious microcalcifications. Left Ultrasound: Targeted real-time ultrasound was performed in the area of clinical concern as indicated by the patient. Correlating with finding on mammography and correlating with the palpable lump in the 8:00 position 1 cm deep to the nipple is a homogenous smoothly marginated mildly hypoechoic mass measuring 1.3 cm x 1.1 cm x 0.9 cm. There is evidence of mild internal blood flow orientation is parallel. There is the suggestion of a small amount of fluid around the periphery of the mass No other sonographic abnormality. us Casey [facility] IMG US BREAST Final Result documented in this encounter Visit Diagnoses Diagnosis Lump in lower inner quadrant of left breast Lump in lower inner quadrant of left breast- Primary documented in this encounter Care Teams Technical Professional Relationship Specialty Start Date End Date Augusta Odom NP [address] [place] [address] PCP - General Nurse Practitioner 09/13/23 Kayley Hawkins NP [address] [place] [phone] Historical LMR Provider 02/28/17 documented as of this encounter Additional Source Comments The information contained in this document represents components of the legal health record. It is not the complete legal health record.[facility]
--- OUTSIDE RECORDS SUMMARY | 2025-02-03 10:02 | XMS_ITS | Encounter Summary ---
Author Organization [facility] Address [address] [facility] [address] [place] [address] Phone Care Team Providers Care Flight Purser Name Role Phone Kayley Hawkins WIRER PASSENGER CAR Unavailable [phone] Augusta Odom WIRER PASSENGER CAR Primary Care Provider [phone] Encounter Details Date Type Department Care Team (Late st Contact Info) Description 11/23/2024 Procedure Pass [facility], Ct Scan - [facility] [address] [place] [address] Social History Tobacco Use Types Packs/Day Years [...] as food, clothing, or medical care? No 11/23/2024 In the past 12 months have y ou been in a relationship with a person who hurts, threatens, or tries to control you? No 11/23/2024 Are you denied basic needs s uch as food, clothing, or medical care? No 11/23/2024 In the past 12 months have y ou been in a relationship with a person who hurts, threatens, or tries to control you? No 11/23/2024 Comments No Sex and Gender Information Value Date Recorded Sex Assigned at Female 05/25/2020 11:15 AM EST Legal Sex Female 9:34 PM EDT Gender Identity Female 05/25/2020 11:15 AM EST Sexual Orientation Straight 09/25/2021 9: 06 PM EDT documented as of this encounter Functional Status * Calculated C-SSRS Risk Score (Lifetime/Recent) Answer Date of Assessment Author No Risk Indicated 11/23/2024 3:30 PM EDT Haritha Conklin, MITZI * Cass Suicide Severity Rating Scale (Screener/Recent Self-Report) Question Answer Date of Assessment Author 1. Wish to be (Past 1 Month) No 025 3:30 PM EDT Haritha Morales, MITZI 2. Non-Specific Active Suici mahsa Thoughts (Past 1 Month) No 11/23/2024 3:30 PM EDT Haritha Morales, MITZI 6. Suicidal Behavior (Lifetime) No 3:30 PM EDT Haritha Morales RN documented as of this encounter Plan of Treatment Not on file documented as of this encounter Visit Diagnoses Not on filedocumented in this encounter Care Teams Flight Purser Relationship Specialty Start Date End Date Augusta Odom NP [address] [place] [address] PCP - General Nurse Practitioner 09/13/23 Kayley Hawkins NP [address] [place] [address] Historical LMR Provider 02/28/17 documented as of this encounter Additional Source Comments The information contained in this document represents components of the legal health record. It is not the complete legal health record.[facility]
== END 2025-02-03 10:22 | disposition home or self-care (01) ==
LOC: HO.HSMS 09:16
PROVIDERS: PCP Nurse Practitioner Family; Visit Provider Physician Assistant Medical
DX: G47.19 Other hypersomnia (principal); F51.05 Insomnia due to other mental disorder; D50.8 Other iron deficiency anemias; F33.8 Other recurrent depressive disorders
CPT/HCPCS: 99204

== ENCOUNTER → 2025-04-27 09:49 | Outpatient (REF) | payer BC, SELFPAY ==
--- OUTSIDE RECORDS SUMMARY | 2023-12-09 07:00 | XMS_ITS ---
Author Organization [address] [id number] Care Team Providers Care Hydrotreater Operator Name Role Phone Naomi Grady Unavailable [phone] REASON FOR VISIT establish Encounters Encounter Location Date Provider Diagnosis [address] [id number] 12/09/2023 Naomi Grady Plan Of Treatment No Information Progress Notes * Loretta BENNETTDOB:[birth year] (54 yo F)Acc No.[id number]:12/09/2023 Progress Notes Patient: Loretta INMAN Provider: Eric Grady ND :1970 A ge:53 Y S ex:Female Date:12/09/2023 Address:[address] [id number] Subjective: * Chief Complaints: * 1 . Establish. * Medical History: Objective: * Vitals: Assessment: Plan: * Treatment: * * Electronic signature of Laisha Grady ND on 04/27/2025 at 11:53 AM EST Sign off status: Pending * Provider: Eric Grady ND Date: 0 12/09/2023 Generated for Janice garcia/Nereida/eTemelynitting on: 1 06/28/2024 11:53 AM EST
--- OUTSIDE RECORDS SUMMARY | 2024-04-22 06:00 | XMS_ITS ---
Author Organization [facility] Address [address] [place] [id number] Care Team Providers Care Nurse Infection Control Name Role Phone Naomi Grady Unavailable [phone] Sha Lopez Unavailable [phone] REASON FOR VISIT ROF Encounters Encounter Location Date Provider Diagnosis [address] [id number] 04/22/2024 Sha Lopez Plan Of Treatment No Information Progress Notes * Loretta BENNETTDOB:[birth year] (54 yo F)Acc No.[id number]:04/22/2024 Progress Notes Patient: Loretta INMAN Provider: Ericka Lopez ND :1970 A ge:53 Y S ex:Female Date:04/22/2024 Address:[address] [facility] Subjective: * Chief Complaints: * 1 . ROF. * Medical History: Objective: * Vitals: Assessment: Plan: * Treatment: * * Electronic signature of Hesham Lopez ND on 04/27/2025 at 11:52 AM EST Sign off status: Pending * Provider: Ericka Lopez ND Date: 06/23/2023 Generated for Janice garcia/Nereida/Cateitting on: 06/28/2024 11:52 AM EST
--- OUTSIDE RECORDS SUMMARY | 2025-04-27 11:49 | XMS_ITS | Encounter Summary ---
Author Organization [facility] Address [address] [place] [address] [place], [place] [id number] Phone Care Team Providers Care Correctional Program Officer Name Role Phone Kayley Hawkins COPER HAND Unavailable [phone] Dhara Greenwood CNM Unavailable [phone] Baldo Sloan MD Unavailable Nelida Rogers COPER HAND Unavailable Augusta Odom COPER HAND Unavailable [phone] Primo Nieves MD, MPH Primary Care Provider + Augusta Odom COPER HAND Primary Care Provider [phone] Encounter Details Date Type Department Care Team (Latest Contact Info) Description 04/19/2021 Transcribe Orders Virtual Department [address] [place], [place] [phone] Peggy Gomez, DO [address] [place] [address] [email or web address] Unspecified lump in the right [...] Primary documented in this encounter Care Teams Correctional Program Officer Relationship Specialty Start Date End Date Primo Nieves MD, MPH [address] [place] [address] PCP - General Family Medicine 04/19/21 09/12/23 Augusta Odom COPER HAND [address] [place] [address] PCP - General Nurse Practitioner 09/13/23 Kayley Hawkins NP [address] [place] [address] Historical LMR Provider 02/28/17 Dhara Greenwood CNM [address] [place] [address] Historical LMR Provider 02/28/17 2 Baldo Sloan MD [address] [place] [address] [email or web address] Historical LMR Provider 02/28/17 05/18/21 Nelida Rogers NP [address] [place] [address] [email or web address] Historical LMR Provider 02/28/17 05/18/21 Augusta Odom NP [address] [place] [address] Historical LMR Provider 02/28/17 documented as of this encounter Additional Source Comments The information contained in this document represents components of the legal health record. It is not the complete legal health record.[facility]
--- OUTSIDE RECORDS SUMMARY | 2025-04-27 11:49 | XMS_ITS | Clinical Summary ---
Author Organization [facility] Address [address] [address] Phone Care Team Providers Care Elevator Serviceman Name Role Phone Kayley Hawkins EXTERMINATOR Unavailable [phone] Augusta Odom EXTERMINATOR Primary Care Provider [phone] Allergies No known active allergies Medications CLONAZEPAM [...] Reviewed WHI findings including increased risk of NC/heart disease, breast cancer and VTE/stroke on HRT with overall decrease in hot flashes, colorectal cancer, and fractures. Advised that current compounded progesterone is not appropriate as estradiol opposition and should be discontinued. Reviewed dosing instructions and side effects including vaginal bleeding and breast tenderness. Taniya is most interested in trying combination patch given side effects with PO Prometrium previously. Rx sent to pharmacy. Resolved Problems Problem Noted Date Diagnosed Date Resolved Date Hormone replacement therapy 01/06/2019 10/18/2021 Assessment & Plan (03/19/2020 10:42 AM EST): Prescribed by Augusta Odom - discussed alternatives to current progesterone dosing including Climara-Pro patch or cyclic micronized progesterone. Again discussed risks/benefits of HRT. Taniya will consider. Assessment & Plan (01/06/2019 9:03 PM EDT): We discussed general principles of HRT including indications (perimenopausal vasomotor symptoms) with the goal of therapy to include the lowest dose/shortest course possible. We discussed different delivery mechanisms of HRT (estrogen: oral, patch; progesterone: oral, patch, IUD) and pros/cons to each approach. Reviewed WHI findings including increased risk of NC/heart disease, breast cancer and VTE/stroke on HRT with overall decrease in hot flashes, colorectal cancer, and fractures. I recommended that Taniya stop the HRT as she was not having vasomotor symptoms and seems to be having medication side effects that are disruptive. I understand that she notes improved sleep but do not think the added side effects warrant continued therapy. She will discuss this further with the prescribing provider. Immunizations Immunization Administration Dates Next Due Influenza, [...] 10/27/2023, 11/0 01/2020, 03/19/2020, Additional history exists RSV VACCINE (1 - 1-dose 75+ series) 2045 SMOKING STATUS SCREENING (Once After 26 Yrs) [...] Procedure Name Priority Date/Time Associated Diagnosis Comments BI MAMMOGRAM OUTSIDE (NO INTERPRETATION) Routine 07/20/2024 12:00 AM EDT PAP TEST Routine 10/27/2023 12:00 AM EDT from Last 3 Months or Most Recently Relevant to Health Maintenance Results * Mammogram Outside (No Interpretation) (07/20/2024 12:00 AM EDT) Narrative SYSTEMGENERATED, DOCUMENTATION - 07/22/2024 12:38 PM EDT This study is for PACS storage only and not for interpretation. us Unknown Unknown MD SALDAÑA OUTSIDE IMAGING W/OUT INT ERPRETATION Final Result * Pap Test (10/27/2023 12:00 AM EDT) Report [address] [address] Track Laying Supervisor: Fawn Hinds MD RATE SETTER Cytology Report FINAL DIAGNOSIS A. PAP SMEAR (THIN PREP) CE: SPECIMEN ADEQUACY: Satisfactory for evaluation; transformation zone absent/insufficien t. Evaluation limited by scant cellularity. INTERPRETATION: NEGATIVE [...] 59, 66, 68) Note: Testing performed by [employer] HR-HPV analysis. Clinical correlation is advised. This HPV test was performed at [facility], [address] [place] [address]. This test has been FDA approved for both SurePath and ThinPrep cervical cytology specimens. The accuracy and precision of this test for all other specimen sources has been verified in the Cytopathology Laboratory of the [facility] and has not been cleared or approved by the U.S. Food and Drug Administration. Clinical correlation is advised. CLINICAL HISTORY Date of Last Menstrual Period: Not Provided Menstrual History: Unknown Other Clinical Conditions: Screening Pap SPECIMEN SOURCE A: PAP SMEAR (THIN PREP) CE Patient Name: TANIYA AUGUSTIN : 1970 (Age: 53) Sex: F Institution: [facility] Location: [facility] Date of Collection: 10/27/2023 Date of Reported: 11/09/2023 17:24 Results to: Augusta Odom NP [facility] Final Diagnosis A. PAP SMEAR (THIN PREP) CE: SPECIMEN ADEQUACY: Satisfactory for evaluation; transformation zone absent/insufficien t. Evaluation limited by scant cellularity. INTERPRETATION: NEGATIVE FOR INTRAEPITHELIAL LESION OR MALIGNANCY. [facility] Results\Inter pretation A. PAP SMEAR (THIN PREP) CE: Human Papilloma Virus TestNEGATIVE for high-risk Human Papilloma Virus types 16, 18, 45 and the Other high risk probe set (Includes 31, 33, 35, 39, 51, 52, 56, 58, 59, 66, 68)Note: Testing performed by [employer] HR-HPV analysis. Clinical correlation is advised. This HPV test was performed at [facility], [address] [place] [address]. This test has been FDA approved for both SurePath and ThinPrep cervical cytology specimens. The accuracy and precision of this test for all other specimen sources has been verified in the Cytopathology Laboratory of the [facility] and has not been cleared or approved by the U.S. Food and Drug Administration. Clinical correlation is advised. [facility] Conversion Type (Conversion Source) 10/27/2023 10/28/2023 8:45 AM EDT us Augusta Odom NP CYTOLOGY ORDERABLES Edited Resu lt - Final [address] [address] from Last 3 Months or Most Recently Relevant to Health Maintenance Insurance PPO EPO [facility] PPO EPO PPO EPO PPO EPO PPO [place] [address] [place] [address] PPO EPO PPO EPO PPO [place] [address] [address] PPO EPO Care Teams Elevator Serviceman Relationship Specialty Start Date End Date Augusta Odom NP [address] [place] [address] PCP - General Nurse Practitioner 09/13/23 Kayley Hawkins NP [address] [address] Historical LMR Provider 02/28/17 Additional Source Comments The information contained in this document represents components of the legal health record. It is not the complete legal health record.[facility]
--- OUTSIDE RECORDS SUMMARY | 2025-04-27 11:49 | XMS_ITS | Encounter Summary ---
Author Organization [facility] Address [address] [employer] [facility] [address] [place] [address] Phone Care Team Providers Care Wide Load Escort Name Role Phone Kayley Hawkins REPORT CLERK Unavailable [phone] Augusta Odom REPORT CLERK Primary Care Provider [phone] Encounter Details Date Type Department Care Team (Late st Contact Info) Description 06/23/2024 Procedure Pass [facility] - [address] [place] [address] Social History Tobacco Use Types Packs/Day Years [...] on filedocumented in this encounter Care Teams Wide Load Escort Relationship Specialty Start Date End Date Augusta Odom NP [address] [place] [address] PCP - General Nurse Practitioner 09/13/23 Kayley Hawkins NP [address] [place] [address] Historical LMR Provider 02/28/17 documented as of this encounter Additional Source Comments The information contained in this document represents components of the legal health record. It is not the complete legal health record.[facility]
--- OUTSIDE RECORDS SUMMARY | 2025-04-27 11:49 | XMS_ITS | Clinical Summary ---
Author Organization [facility] Address [address] [place] [address] Phone Care Team Providers Care Hostel Manager Name Role Phone Augusta Odom JEAN Primary Care Provider [phone] Allergies No known active allergies Medications gabapentin [...] (one) time each day. 90 each 3 03/29/20 25 026 Active linaCLOtide (Linzess) 145 mcg capsuleIndicatio ns:Irritable bowel syndrome with constipation,Blo ating Take 1 capsule (145 mcg total) by mouth 1 (one) time each day. 90 each 04/13/20 Active plecanatide (Trulance) 3 mg tabletIndication s:Irritable bowel syndrome with constipation Take 1 tablet (3 mg total) by mouth 1 (one) time each day. 90 each 02/02/20 025 Discontin ued(Reord er) Active Problems Problem Noted Date Diagnosed Date [...] Encounters Date Type Department Care Team Description 04/04/2025 Telephone Gastroenterology - [address] [phone] Elizabeth Daniel MD 02/08/2025 11:37 AM EDT - 02/08/2025 11:59 PM EDT Hospital Encounter [facility] Xray [address] [place] [id number] Irritable bowel syndrome with constipation; Bloating Discharge Disposition: Home or Self Care 02/08/2025 11:20 AM EDT Office Visit Gastroenterology - [address] [phone] Radha Reynolds PA Irritable bowel syndrome with constipation (Primary Dx); Bloating 02/08/2025 Results Follow-Up Gastroenterology - [address] [address] Radha Reynolds PA from Last 3 Months Surgical History Surgery Date Site/Laterality Comments COLONOSCOPY 03/11/2024 - 04/09/2024 5 yr recall SECTION, LOW TRANSVERSE 1999, 2002 Medical History Medical History Date Comments Motion sickness 1980 Chronic constipation 2013 Colon polyp 2019 Irritable bowel syndrome 2018 [...] Orientation Straight 07/15/2024 10 :53 AM EST Last Filed Vital Signs Vital Sign Reading Time Taken Comments Blood Pressure - - Pulse - - Temperature - - Respiratory Rate - - Oxygen Saturation - - Inhaled Oxygen Concentration - - Weight 51.5 kg (113 lb 9.6 oz) 02/08/2025 11:04 AM EDT Height 160 cm (5' 3 ) 02/08/2025 11:04 AM EDT Body Mass Index 20.12 02/08/2025 11:04 AM EDT Plan of Treatment Health Maintenance Due Date Last Done Comments Drug Screen 1970 Non-Opioid Controlled Substance Agreement 1970 Hepatitis B Vaccines (1 of 3 - 19+ 3-dose series) 1989 Cervical Cancer Screening: P ap Smear 1991 Pneumococcal Vaccine: 50+ Years (1 of 1 - PCV) 2020 Zoster Vaccines (1 of 2) 2020 HIV Screening 02/24/2024 Hepatitis C Screening 02/24/2024 Social Influencers of Health Screening 02/24/2024 Depression Screening 05/11/2024 COVID-19 Vaccine (3 - 2024-2 6 season) 2025 01/09/2021, 12/18/2020 Influenza Vaccine (#1) 01/09/2025200 6, 04/01/2005, 03/31/2003 Breast Cancer Screening 07/07/2026 07/07/19, 07/07/2024 DTaP,Tdap,and Td Vaccines (3 - Td [...] this topic Medical Devices Implanted Type Area Advanced Practice Registered Nurse Device Identifier Shelf Expiration Date Model / Serial / Lot Marker Rgd Shrp Brst Bx Coil 1 - [id number] - [id number] Implanted:Qty: 1 on 07/20/2024 by Pawel Dunn MD at [facility] Implants Left: Breast Kiwi CrateR Training Advisor [id number] 02/17/2027 4010-02- 15-T1 / [id number] / [id number] Procedures Procedure Name Priority Date/Time Associated Diagnosis Comments XR ABDOMEN 1 VIEW Routine 02/08/2025 11: 54 AM EDT Irritable bowel syndrome with constipation Bloating MG MAMMO DIGITAL DIAGNOSTIC W JJ BILAT Routine 07/07/2024 2:31 PM EST EXTERNAL COLONOSCOPY REPORT Routine 02/14/2019 10:08 AM EDT from Last 3 Months or Most Recently Relevant to Health Maintenance Results * XR Abdomen 1 View (02/08/2025 11:54 AM EDT) Anatomical Region Laterality Modality Body Radiographic Jyoti ging 02/08/2025 11:5 9 AM EDT Impressions 02/08/2025 12:00 PM EDT Nonobstructive bowel gas pattern. Code 77477 -------- FINAL REPORT -------- Dictated By: Uriel Parker Dictated Date: 02/08/2025 11:59 ET Assigned Physician: Uriel Parker Reviewed and Electronically Signed By: Uriel Parker Signed Date: 02/08/2025 12:00 ET Workstation ID: [id number] Transcribed By: Self Edit Transcribed Date: 02/08/2025 11:59 ET Narrative 02/08/2025 12:00 PM EDT HISTORY: The patient is a 54-year-old female with abdominal distention and constipation. FINDINGS: Supine radiographs of the abdomen, without previous for comparison, demonstrate normal appearance of the bony structures. The bowel gas pattern is nonobstructive. The volume of fecal material is not unusually increased. No mass or radiopaque calculus is seen. Procedure Note Uriel Parker MD - 02/08/2025 HISTORY: The patient is a 54-year-old female with abdominal distention andconstipation. FINDINGS: Supine radiographs of the abdomen, without previous forcomparison, demonstrate normal appearance of the bony structures. Thebowel gas pattern is nonobstructive. The volume of fecal material is notunusually increased. No mass or radiopaque calculus is seen. IMPRESSION: Nonobstructive bowel gas pattern. Code 71872 -------- FINAL REPORT -------- Dictated By: Uriel Parker Dictated Date: 02/08/2025 11:59 ET Assigned Physician: Uriel Parker Reviewed and Electronically Signed By: Uriel Parker Signed Date: 02/08/2025 12:00 ET Workstation ID: [id number] Transcribed By: Self Edit Transcribed Date: 02/08/2025 11:59 ET us Radha COLON IMG XR PROCEDURES Final Resu lt * MG Mammo Digital Diagnostic w Jj bilat (07/07/2024 2:31 PM EST) Anatomical Region Laterality Modality Breast Bilateral Mammography Casey SALDAÑA BI PROCEDURES Final Result * External Colonoscopy Report (02/14/2019 10:08 AM EDT) Anatomical Region Laterality Modality Endoscopy Historical Provider GI~PROCEDURE ORDERABLES F inal Result from Last 3 Months or Most Recently Relevant to Health Maintenance Insurance Care Teams Hostel Manager Relationship Specialty Start Date End Date Augusta Odom FNP [address] [place] [phone] PCP - General Nurse Practitioner 03/29/24
--- OUTSIDE RECORDS SUMMARY | 2025-04-27 11:49 | XMS_ITS | Encounter Summary ---
Author Organization [facility] Address [address] [facility] [address] [place] [address] Phone Care Team Providers Care Film Editor Supervisor Name Role Phone Kayley Hawkins PEDIATRIC NP Unavailable [phone] Augusta Odom PEDIATRIC NP Primary Care Provider [phone] Encounter Details Date Type Department Care Team (Late st Contact Info) Description 06/23/2024 Procedure Pass [facility] - [address] [place] [address] Social History Tobacco Use Types Packs/Day Years [...] on filedocumented in this encounter Care Teams Film Editor Supervisor Relationship Specialty Start Date End Date Augusta Odom NP [address] [place] [address] PCP - General Nurse Practitioner 09/13/23 Kayley Hawkins NP [address] [place] [address] Historical LMR Provider 02/28/17 documented as of this encounter Additional Source Comments The information contained in this document represents components of the legal health record. It is not the complete legal health record.[facility]
--- OUTSIDE RECORDS SUMMARY | 2025-04-27 11:53 | XMS_ITS | Encounter Summary ---
Author Organization [facility] Address [address] [employer] [facility] [address] [place] [address] Phone Care Team Providers Care Lawyer Name Role Phone Kayley Hawkins OIL WELL ENGINEER Unavailable [phone] Augusta Odom OIL WELL ENGINEER Primary Care Provider [phone] Encounter Details Date Type Department Care Team (Late st Contact Info) Description 07/07/2024 Ancillary Orders [facility], [address] [address] Casey Augustin PA [address] [place] [address] Lump in lower inner quadrant of left [...] Primary documented in this encounter Care Teams Lawyer Relationship Specialty Start Date End Date Augusta Odom NP [address] [place] [address] PCP - General Nurse Practitioner 09/13/23 Kayley Hawkins NP [address] [place] [address] Historical LMR Provider 02/28/17 documented as of this encounter Additional Source Comments The information contained in this document represents components of the legal health record. It is not the complete legal health record.[facility]
--- OUTSIDE RECORDS SUMMARY | 2025-04-27 11:54 | XMS_ITS | Encounter Summary ---
Author Organization [facility] Address [address] [place], [place] [phone] Phone Care Team Providers Care Unit Educator Name Role Phone Kayley Hawkins STILL RUNNER Unavailable Dhara Greenwood CNM Unavailable Baldo Sloan MD Unavailable Nelida Rogers STILL RUNNER Unavailable [phone] Augusta Odom STILL RUNNER Unavailable [phone] Primo Nieves MD, MPH Primary Care Provider + Primo Nieves MD, MPH Primary Care Provider + Augusta Odom STILL RUNNER Primary Care Provider Encounter Details Date Type Department Care Team (Late st Contact Info) Description 03/19/2020 Procedure Pass [address] [address] Social History Tobacco Use Types Packs/Day Years [...] on filedocumented in this encounter Care Teams Unit Educator Relationship Specialty Start Date End Date Primo Nieves MD, MPH [address] [place] [address] [email or web address] PCP - General Family Medicine 10/26/17 04/18/21 Primo Nieves MD, MPH [address] [place] [address] [email or web address] PCP - General Family Medicine 04/19/21 09/12/23 Augusta Odom NP [address] [place] [address] PCP - General Nurse Practitioner 09/13/23 Kayley Hawkins NP [address] [place] [address] Historical LMR Provider 02/28/17 Dhara Greenwood CNM [address] [place] [address] Historical LMR Provider 02/28/17 2 Baldo Sloan MD [address] [place] [address] [email or web address] Historical LMR Provider 02/28/17 05/18/21 Nelida Rogers NP [address] [place] [address] Historical LMR Provider 02/28/17 05/18/21 Augusta Odom STILL RUNNER [address] [place] [address] Historical LMR Provider 02/28/17 documented as of this encounter Additional Source Comments The information contained in this document represents components of the legal health record. It is not the complete legal health record.[facility]
--- OUTSIDE RECORDS SUMMARY | 2025-04-27 11:54 | XMS_ITS | Patient Health Record ---
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
--- OUTSIDE RECORDS SUMMARY | 2025-04-27 11:54 | XMS_ITS | Encounter Summary ---
Author Organization [facility] Address [address] [facility] [address] [place] [phone] Phone Care Team Providers Care Integration Technician Name Role Phone Kayley Hawkins DECK LID FITTER Unavailable [phone] Augusta Odom DECK LID FITTER Primary Care Provider [phone] Encounter Details Date Type Department Care Team (Late st Contact Info) Description 11/23/2024 Procedure Pass [facility], Ct Scan - [facility] [address] [place] [address] Social History Tobacco Use Types Packs/Day Years [...] 3:30 PM EDT Haritha Conklin, MITZI * [place] Suicide Severity Rating Scale (Screener/Recent Self-Report) Question [...] on filedocumented in this encounter Care Teams Integration Technician Relationship Specialty Start Date End Date Augusta Odom NP [address] [place] [address] PCP - General Nurse Practitioner 09/13/23 Kayley Hawkins NP [address] [place] [id number] Historical LMR Provider 02/28/17 documented as of this encounter Additional Source Comments The information contained in this document represents components of the legal health record. It is not the complete legal health record.[facility]
--- OUTSIDE RECORDS SUMMARY | 2025-04-27 11:54 | XMS_ITS | Encounter Summary ---
Author Organization [facility] Address [address] [facility] [address] [place] [phone] Phone Care Team Providers Care Radio Equipment Installer Name Role Phone Kayley Hawkins SHAMPOO TECHNICIAN Unavailable [phone] Primo Nieves MD, MPH Primary Care Provider + Augusta Odom NP Primary Care Provider [phone] Encounter Details Date Type Department Care Team (Late st Contact Info) Description 09/17/2022 Procedure Pass [facility], [address] [address] Social History Tobacco Use Types Packs/Day Years [...] on filedocumented in this encounter Care Teams Radio Equipment Installer Relationship Specialty Start Date End Date Primo Nieves MD, MPH [address] [place] [address] [email or web address] PCP - General Family Medicine 04/19/21 09/12/23 Augusta Odom NP [address] [place] [phone] PCP - General Nurse Practitioner 09/13/23 Kayley Hawkins NP [address] [place] [id number] Historical LMR Provider 02/28/17 documented as of this encounter Additional Source Comments The information contained in this document represents components of the legal health record. It is not the complete legal health record.[facility]
== END ==
LOC: HO.SL 09:49
PROVIDERS: Visit Provider Physician Assistant Medical
DX: G47.19 Other hypersomnia (principal)
CPT/HCPCS: 95806

== ENCOUNTER → 2025-04-28 10:00 | Outpatient (BNV) | payer BC, SELFPAY | PROVIDERS: Visit Provider Psychiatry & Neurology Neurology | DX: G47.19 Other hypersomnia (principal) | CPT/HCPCS: 95806 ==